=== PATIENT | female | born 1965 | race Caucasian/White ===

== ENCOUNTER 2017-01-18 14:16 | Outpatient (CLI) | payer MEDICAID | END 2017-01-18 14:17 | disposition home or self-care (01) | DX: M25.551 Pain in right hip (principal) ==

== ENCOUNTER 2017-04-26 14:49 | Emergency (ER) | payer MEDICAID ==
[2017-04-26] MEDS ORDERED: oxyCOD/ACETAMIN 5 MG/325 MG TABLET PO STA (17:12)
[2017-04-26] MEDS ORDERED: oxyCOD/ACETAMIN 5 MG/325 MG TABLET PO ONE (17:16)
== END 2017-04-26 17:55 | disposition home or self-care (01) ==
DX: S93.412A Sprain of calcaneofibular ligament of left ankle, initial encounter (principal); X50.0XXA Overexertion from strenuous movement or load, initial encounter; Y92.019 Unspecified place in single-family (private) house as the place of occurrence of the external cause; K21.9 Gastro-esophageal reflux disease without esophagitis
CPT/HCPCS: 73610; 73630; 99283; A9270

== ENCOUNTER 2017-05-10 16:28 | Outpatient (CLI) | payer MEDICAID ==
--- NOTE | 2017-05-12 13:16 | XRAY Report ---
LEFT ANKLE, THREE VIEWS: 05/10/2017 FINDINGS: Soft tissue swelling is seen about the lateral aspect of the left ankle. No fracture is s een. Minor spurring is seen along the inferior tip of the left fibula. Left ankle joint appears nor mal. No acute fracture is seen. Talar dome appears intact. IMPRESSION: MILD LATERAL SOFT TISSUE SWELLING IS NOTED WITHOUT ACUTE FRACTURE SEEN. NO SIGNIFICANT CHANGE IS NOTED COMPARED TO 04/26/2017. JOB #: [id number] EXT JOB #:[id number]
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
== END 2017-05-10 16:29 | disposition home or self-care (01) ==
LOC: DI.S 16:28
PROVIDERS: ATTEND Nurse Practitioner Family
DX: S96.812D Strain of other specified muscles and tendons at ankle and foot level, left foot, subsequent encounter (principal)

== ENCOUNTER 2017-06-18 23:07 | Emergency (ER) | payer MEDICAID ==
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
[2017-06-19] MEDS ORDERED: ONDANSETRON ODT 4 MG TABLET TL STA (00:57)
[2017-06-19] MEDS ORDERED: oxyCOD/ACETAMIN 5 MG/325 MG TABLET PO STA (00:57)
[2017-06-19] MEDS ORDERED: oxyCOD/ACETAMIN 5 MG/325 MG TABLET PO ONE (01:07)
[2017-06-19] MEDS ORDERED: ONDANSETRON ODT 4 MG TABLET ONE (01:07)
--- NOTE | 2017-06-19 01:46 | CT Preliminary Report ---
Exam: CT Head W/O IMPRESSION: Normal head CT. [facility] SITE ID: [id number]
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
[2017-06-19 02:34] VITALS: BP 122/78
== END 2017-06-19 02:34 | disposition home or self-care (01) ==
LOC: ED 23:07
DX: R51 Headache (principal); M54.2 Cervicalgia; M25.551 Pain in right hip; V89.2XXA Person injured in unspecified motor-vehicle accident, traffic, initial encounter; K21.9 Gastro-esophageal reflux disease without esophagitis; M19.90 Unspecified osteoarthritis, unspecified site
CPT/HCPCS: 70450; 99283; A9270; Q0162

== ENCOUNTER 2017-10-29 14:30 | Outpatient (CLI) | payer MEDICAID | END 2017-10-29 14:31 | disposition home or self-care (01) | LOC: LAB.R 14:30 | PROVIDERS: ATTEND Nurse Practitioner Family | DX: M13.0 Polyarthritis, unspecified (principal); M54.2 Cervicalgia | CPT/HCPCS: 80307 ==

== ENCOUNTER 2017-11-14 01:50 | Emergency (ER) | payer MEDICAID ==
[2017-11-14] MEDS ORDERED: traMADol 50 MG TABLET PO STA (02:37)
--- NOTE | 2017-11-14 02:41 | XRAY Report ---
EXAM: LEFT ANKLE RADIOGRAPHY EXAM DATE: 11/14/2017 02:24 AM. CLINICAL HISTORY: Fall ankle pain. COMPARISON: None. TECHNIQUE: 3 views. FINDINGS: Bones: No acute discrete fracture or definite suspicious bony lesion. Joints: Ankle mortise appears intact on these nonstressed images. Soft Tissues: Mild lateral soft tissue swelling. IMPRESSION: Mild lateral soft tissues without displaced fracture. [facility] Referring Provider Line: [phone] SITE ID: [id number]
--- NOTE | 2017-11-14 02:41 | XRAY Preliminary Report ---
Exam: XR ANKLE 3 VIEW LT IMPRESSION: Mild lateral soft tissues without displaced fracture. [facility] SITE ID: [id number]
[2017-11-14] MEDS ORDERED: oxyCOD/ACETAMIN 5 MG/325 MG TABLET PO STA (02:53)
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
[2017-11-14 03:15] VITALS: BP 148/86
== END 2017-11-14 03:15 | disposition home or self-care (01) ==
LOC: ED 01:50
DX: S93.402A Sprain of unspecified ligament of left ankle, initial encounter (principal); X50.1XXA Overexertion from prolonged static or awkward postures, initial encounter; Y93.E1 Activity, personal bathing and showering; Y92.012 Bathroom of single-family (private) house as the place of occurrence of the external cause; K21.9 Gastro-esophageal reflux disease without esophagitis; M19.90 Unspecified osteoarthritis, unspecified site
CPT/HCPCS: 73610; 99283; A9270

== ENCOUNTER 2017-12-15 15:31 | Outpatient (CLI) | payer MEDICAID ==
--- NOTE | 2017-12-17 10:56 | DEXA Report ---
DEXA SCAN: 12/15/2017 CLINICAL INDICATION: Postmenopausal. TECHNIQUE: Dual energy x-ray absorptiometry (DXA) was performed on a [facility] system. Regions measured are the AP spine, femoral neck, and, if needed, forearm. COMPARISON: None. In accordance with the International Society for Clinical Densitometry (ISCD) guidelines, data from previous exams may be reanalyzed using current recommendations and techniques. This is done to allow a more accurate basis for comparison with the current study. FINDINGS The data for the lumbar spine is as follows: REGION BMD (g/cm/cm) T-SCORE Z-SCORE L1 1.108 -0.2 0.4 L2 1.243 0.4 0.9 L3 1.369 1.4 1.9 L4 1.335 1.1 1.7 L1-L4 1.271 0.8 1.3 NOTE: All evaluable vertebrae are used for classification. The data for the hip is as follows: REGION BMD (g/cm/cm) T-SCORE Z-SCORE Neck 0.936 -0.7 0.1 TOTAL 1.028 0.2 0.6 NOTE: The femoral neck or total proximal femur, whichever is lowest, is used for classification. IMPRESSION THE WHO CLASSIFICATION BASED ON THE INTERNATIONAL REFERENCE STANDARD IS NORMAL. THE FRACTURE RISK IS NOT INCREASED. RECOMMENDATION: Patients with diagnosis of osteoporosis or osteopenia should have regular bone mineral density assessment. For those eligible for Medicare, routine testing is allowed once every 2 years. Testing frequency can be increased for patients who have rapidly progressing disease or for those who are receiving medical therapy to restore bone mass. COMMENT: World Health Organization (WHO) definitions for osteoporosis and osteopenia: NORMAL BMD: T-score at 1.0 or higher, fracture risk is low. OSTEOPENIA BMD: T-score between 1.0 and -2.5, fracture risk is increased. OSTEOPOROSIS BMD: T-score at 2.5 or lower, fracture risk high. National Osteoporosis Foundation recommends: 1. Obtain adequate dietary calcium (at least 1200 mg per day) and vitamin D (400 -800 international units per day). 2. Participate, as appropriate, in regular weightbearing and muscle- strengthening exercise. 3. Avoid tobacco use and reduce alcohol and caffeine intake. 4. For more detailed information see the website at www.NOF.org. TD: 12/16/2017 11:26 JERICHO
== END 2017-12-15 15:32 | disposition home or self-care (01) ==
LOC: DI 15:31
PROVIDERS: ATTEND Nurse Practitioner Family
DX: Z78.0 Asymptomatic menopausal state (principal)
CPT/HCPCS: 77080

== ENCOUNTER 2018-01-11 12:58 | Outpatient (CLI) | payer MEDICAID ==
--- NOTE | 2018-01-11 15:01 | XRAY Report ---
TWO VIEW LEFT SHOULDER: 01/11/2018 CLINICAL INDICATION: Pain. FINDINGS: Frontal and scapular Y views of the left shoulder demonstrate no evidence of fracture. The joint spaces are preserved. There is calcification in the expected location of the distal supraspinatus tendon, compatible with calcific tendonitis. No foreign body is seen in the soft tissues. IMPRESSION: LIKELY CALCIFIC TENDINITIS. TD: 01/11/2018 14:59
== END 2018-01-11 12:59 | disposition home or self-care (01) ==
LOC: DI.S 12:58
PROVIDERS: ATTEND Nurse Practitioner Family
DX: M65.812 Other synovitis and tenosynovitis, left shoulder (principal)

== ENCOUNTER 2018-03-16 14:33 | Outpatient (CLI) | payer MEDICAID ==
--- NOTE | 2018-03-16 17:33 | Mammography Report ---
DIGITAL DIAGNOSTIC BILATERAL MAMMOGRAM: 03/16/2018 CLINICAL INDICATION: Palpable abnormalities. COMPARISON: 01/27/2016, 11/11/2010. TECHNIQUE: Bilateral CC, laterally exaggerated CC, MLO, true lateral views. At the time of the examination, in addition to the palpable abnormality in the right lower inner quadrant, the patient also described palpable abnormalities in the left lower inner and lower outer quadrants, so bilateral markers were placed. FINDINGS: The breasts again demonstrate heterogeneously dense fibroglandular parenchyma bilaterally. A few punctate, typically benign calcifications are present. No suspicious masses, clustered microcalcifications, or regions of architectural distortion are identified. Unfortunately, at the time of the examination, ultrasound could not be performed. This will be scheduled at a later date. IMPRESSION: INCOMPLETE EXAMINATION. RECOMMENDATION: Bilateral breast ultrasound, to be scheduled. BI-RADS category 0, incomplete. STANDARD QUALIFYING STATEMENTS 1. This examination was reviewed with the aid of Computed-Aided Detection (CAD). 2. A negative or benign imaging report should not delay biopsy if clinically suspicious findings are present. Consider surgical consultation if warranted. More than 5% of cancers are not identified by imaging. 3. Dense breasts may obscure an underlying neoplasm. TD: 03/16/2018 16:07
== END 2018-03-16 14:34 | disposition home or self-care (01) ==
LOC: DI 14:33
PROVIDERS: ATTEND Nurse Practitioner Family
DX: N63.14 Unspecified lump in the right breast, lower inner quadrant (principal)
CPT/HCPCS: 77066

== ENCOUNTER 2018-04-06 10:35 | Outpatient (CLI) | payer MEDICAID ==
--- NOTE | 2018-04-06 11:41 | Ultrasound Report ---
Procedure Date: 04/06/2018 Accession Number: [id number] / [id number] Procedure: US - Breast Unilateral Limited CPT Code: FULL RESULT: EXAM: Breast Unilateral Limited DATE: 04/06/2018 11:30 AM CLINICAL HISTORY: BREAST LUMP OR MASS, RIGHT COMPARISON: Mammogram 03/16/2018 TECHNIQUE: Real time scanning of the palpable abnormality identified by the patient, with service liaison representative static images obtained. FINDINGS: Unremarkable parenchyma is present. No discrete solid or cystic mass is seen. No sonographically suspicious findings are identified. IMPRESSION: Negative examination. Recommendation: Routine annual screening less otherwise clinically indicated. BI-RADS Category 1 negative
--- NOTE | 2018-04-06 11:43 | Ultrasound Report ---
Procedure Date: 04/06/2018 Accession Number: [id number] / [id number] Procedure: US - Breast Unilateral Limited CPT Code: FULL RESULT: EXAM: Breast Unilateral Limited DATE: 04/06/2018 11:29 AM CLINICAL HISTORY: BREAST LUMP OR MASS, LEFT COMPARISON: Mammogram 03/16/2018 TECHNIQUE: Real time scanning of the palpable regions identified by the patient, with textiles sales representative static images obtained. FINDINGS: Unremarkable parenchymal lobules are present. No discrete solid or cystic mass is identified. No sonographically suspicious findings are seen. IMPRESSION: Negative examination. Recommendation: Routine annual screening unless otherwise clinically indicated. BI-RADS Category 1 negative
== END 2018-04-06 10:36 | disposition home or self-care (01) ==
LOC: DI 10:35
PROVIDERS: ATTEND Nurse Practitioner Family
DX: N63.20 Unspecified lump in the left breast, unspecified quadrant (principal)
CPT/HCPCS: 76642

== ENCOUNTER 2018-07-08 10:57 | Outpatient (CLI) | payer MEDICAID ==
[2018-07-08 17:33] LABS: BASOPHILS % (AUTO) 0.7 %; EOSINOPHILS # (AUTO) 0.1 10^3/uL (0.0-0.7); EOSINOPHILS % (AUTO) 4.3 %; HGB - HEMOGLOBIN 13.5 g/dL (12.0-16.0); LYMPHOCYTES # (AUTO) 0.9 10^3/uL (1.5-3.5); LYMPHOCYTES % (AUTO) 27.8 %; MEAN CORPUSCULAR HEMOGLOBIN 30.6 pg (27.0-31.0); MEAN CORPUSCULAR HGB CONC 34.3 g/dL (32.0-36.0); MEAN CORPUSCULAR VOLUME 89.3 fL (81.0-99.0); MEAN PLATELET VOLUME 8.3 fL (7.9-10.8); MONOCYTES # (AUTO) 0.3 10^3/uL (0.0-1.0); MONOCYTES % (AUTO) 8.3 %; NEUTROPHILS # (AUTO) 1.9 10^3/uL (1.5-6.6); NEUTROPHILS % (AUTO) 58.9 %; PLT - PLATELET COUNT 177 10^3/uL (130-450); RED BLOOD COUNT 4.41 10^6/uL (4.20-5.40); RED CELL DISTRIBUTION WIDTH 12.8 % (12.0-15.0); WHITE BLOOD COUNT 3.3 x10^3/uL (4.8-10.8)
[2018-07-08 18:02] LABS: ALBUMIN/GLOBULIN RATIO 1.5 (1.0-2.2); BILIRUBIN,TOTAL 0.8 mg/dL (0.2-1.0); CALCIUM 8.7 mg/dL (8.5-10.3); CREATININE 0.9 mg/dL (0.4-1.0); TOTAL PROTEIN 6.6 g/dL (6.7-8.2)
[2018-07-11 18:40] LABS: ANA SCREEN NEGATIVE (NEGATIVE)
== END 2018-07-08 10:58 | disposition home or self-care (01) ==
LOC: LAB.F 10:57
PROVIDERS: ATTEND Physician Assistant Medical
DX: R21 Rash and other nonspecific skin eruption (principal)
CPT/HCPCS: 36415; 80053; 81599; 85025; 86038; 86235

== ENCOUNTER 2018-08-04 09:42 | Outpatient (CLI) | payer MEDICAID | END 2018-08-04 09:43 | disposition home or self-care (01) | LOC: LAB.R 09:42 | PROVIDERS: ATTEND Family Medicine | DX: N39.0 Urinary tract infection, site not specified (principal) | CPT/HCPCS: 87086 ==

== ENCOUNTER 2018-09-21 08:00 | Outpatient (CLI) | payer MEDICAID ==
[2018-09-21 18:01] LABS: CREATININE,URINE 108.3 mg/dL; MICROALBUM/CREATININE RATIO,UR 5.5 ug/mg (<30.0); MICROALBUMIN,URINE 0.6 mg/dL (0-300.0)
== END 2018-09-21 08:01 | disposition home or self-care (01) ==
LOC: LAB.R 08:00
PROVIDERS: ATTEND Nurse Practitioner Family
DX: R94.4 Abnormal results of kidney function studies (principal)
CPT/HCPCS: 82043; 82570

== ENCOUNTER 2019-01-09 12:07 | Emergency (ER) | payer MEDICAID ==
[2019-01-09] MEDS ORDERED: predniSONE 20 MG TABLET PO STA (16:29)
[2019-01-09] MEDS ORDERED: FAMOTIDINE 20 MG TABLET PO STA (16:30)
--- NOTE | 2019-01-09 16:32 | ED Physician Documentation ---
PD HPI SKIN - Stated complaint Stated Complaint: ALLERGIC REACTION - Chief complaint Chief Complaint: Allergic Rx - Additional information Additional information: 53-year-old female with a history of recurrent allergic reactions to an unknown allergen. The patient's been treated in the past with steroids which is helped. The patient reports with 3 days of symptoms of face swelling and a rash on her skin. No reports of respiratory distress. No other associated symptoms. No clear triggering factors. 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 : Other HEENT: None Psych: Claustrophobia Musculoskeletal: Osteoarthritis, Chronic back pain, Other Derm: None - Past Surgical History Past Surgical History: Yes /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: Hysterectomy, Other - Present Medications Home Medications: Ambulatory Orders Medication Instructions Recorded Confirmed Escitalopram Oxalate [Lexapro] 20 mg ORAL DAILY 08/03/14 11/14/17 Trazodone HCl 50 mg ORAL DAILY PRN 08/03/14 11/14/17 diazePAM [Diazepam] 5 - 10 mg PO PRN PRN 04/26/17 11/14/17 raNITIdine [Zantac] 150 mg PO BID 04/26/17 11/14/17 Ondansetron HCl [Zofran] 4 mg PO Q6HR PRN #14 tablet 06/19/17 11/14/17 oxyCODONE/ACET 5/325 [Percocet 5 1 - 2 each PO Q6H PRN #14 tablet 06/19/17 11/14/17 mg/325 mg] predniSONE [Prednisone] 1 tab PO DAILY PRN 11/14/17 11/14/17 Famotidine [Pepcid] 20 mg PO BID PRN #60 tablet 01/09/19 predniSONE [Prednisone] 60 mg PO DAILY #12 tablet 01/09/19 - Allergies Allergies/Adverse Reactions: Allergies Allergy/AdvReac Type Severity Reaction Status Date / Time codeine Allergy Nausea Verified 11/14/17 02:03 Tetracyclines Allergy Nausea Verified 01/21/18 02:03 - Social History Does the pt smoke?: No Smoking Status: Never smoker Does the pt drink ETOH?: Yes Does the pt have substance abuse?: Yes - Immunizations Immunizations are current?: Yes - POLST Patient has POLST: No PD ED PE NORMAL - General General: Alert and oriented X 3, No acute distress - HEENT HEENT: Atraumatic, PERRL, EOMI, Ears normal, Pharynx benign, Other (The uvula is midline and nonedematous, the posterior pharynx is within normal limits, Or lips) - Neck Neck: Other (No swelling of the anterior neck) - Cardiac Cardiac: RRR - Respiratory Respiratory: No respiratory distress - Derm Derm: Normal color - Extremities Extremities: No deformity - Neuro Neuro: Alert and oriented X 3, Normal speech - Psych Psych: Normal mood PD ED PE EXPANDED - Derm Derm: Other (The patient has a urticarial rash on her face and trunk) Results - Vitals Vitals: Vital Signs - 24 hr 01/09/19 01/09/19 12:21 15:39 Temperature 36.2 C L Heart Rate 64 65 Respiratory 16 16 Rate Blood Pressure 131/94 H 142/99 H O2 Saturation 99 100 Oxygen O2 Source Room air PD MEDICAL DECISION MAKING - ED course ED course: The patient has a mild allergic reaction, the patient appears appropriate for discharge and ongoing outpatient management. The patient will follow up with primary care. I discussed warning signs and recommended returning for any worsening or concerns Departure - Departure Disposition: 01 Home, Self Care Clinical Impression: Allergic reaction Qualifiers: Encounter type: initial encounter Qualified Code(s): T78.40XA - Allergy, unspecified, initial encounter Condition: Good Instructions: ED Allergic Reaction General Other Prescriptions: Famotidine [Pepcid] 20 mg PO BID PRN #60 tablet PRN Reason: Allergy Symptoms predniSONE [Prednisone] 60 mg PO DAILY #12 tablet Comments: Please return to Emergency department for worsening symptoms or any concerns
[2019-01-09 16:38] VITALS: BP 139/97
== END 2019-01-09 16:48 | disposition home or self-care (01) ==
LOC: ED 12:07
DX: T78.40XA Allergy, unspecified, initial encounter (principal); X58.XXXA Exposure to other specified factors, initial encounter
CPT/HCPCS: 99283; A9270; J7512

== ENCOUNTER 2019-02-03 15:32 | Outpatient (CLI) | payer MEDICAID ==
[2019-02-03 17:58] LABS: BASOPHILS % (AUTO) 0.6 %; EOSINOPHILS # (AUTO) 0.2 10^3/uL (0.0-0.7); EOSINOPHILS % (AUTO) 5.5 %; HGB - HEMOGLOBIN 12.9 g/dL (12.0-16.0); LYMPHOCYTES # (AUTO) 1.4 10^3/uL (1.5-3.5); LYMPHOCYTES % (AUTO) 35.6 %; MEAN CORPUSCULAR HEMOGLOBIN 29.8 pg (27.0-31.0); MEAN CORPUSCULAR HGB CONC 33.8 g/dL (32.0-36.0); MEAN CORPUSCULAR VOLUME 88.1 fL (81.0-99.0); MEAN PLATELET VOLUME 7.2 fL (7.9-10.8); MONOCYTES # (AUTO) 0.4 10^3/uL (0.0-1.0); MONOCYTES % (AUTO) 10.8 %; NEUTROPHILS # (AUTO) 1.9 10^3/uL (1.5-6.6); NEUTROPHILS % (AUTO) 47.5 %; PLT - PLATELET COUNT 180 10^3/uL (130-450); RED BLOOD COUNT 4.33 10^6/uL (4.20-5.40); RED CELL DISTRIBUTION WIDTH 13.3 % (12.0-15.0)
[2019-02-03 18:11] LABS: ALBUMIN 3.6 g/dL (3.2-5.5); ALBUMIN/GLOBULIN RATIO 1.3 (1.0-2.2); BILIRUBIN,TOTAL 0.5 mg/dL (0.2-1.0); CREATININE 0.7 mg/dL (0.4-1.0); TOTAL PROTEIN 6.3 g/dL (6.7-8.2)
[2019-02-03 18:22] LABS: HB2 TOTAL 13.7 g/dL; HEMOGLOBIN A1C 0.55 g/dL; HEMOGLOBIN A1C % 5.8 % (4.6-6.2)
== END 2019-02-03 23:59 ==
LOC: LAB.F 15:32
PROVIDERS: ATTEND Nurse Practitioner
DX: Z13.6 Encounter for screening for cardiovascular disorders (principal); Z13.1 Encounter for screening for diabetes mellitus
CPT/HCPCS: 36415; 80053; 83036; 85025

== ENCOUNTER 2019-06-05 08:00 | Outpatient (CLI) | payer MEDICAID ==
[2019-06-05 21:03] LABS: CANDIDA GROUP DNA NEGATIVE (NEGATIVE); CANDIDA KRUSEI DNA NEGATIVE (NEGATIVE); TRICHOMONAS VAGINALIS DNA NEGATIVE (NEGATIVE)
[2019-06-05 21:36] LABS: TRICHOMONAS VAGINALIS DNA NEGATIVE (NEGATIVE)
== END 2019-06-05 23:59 | disposition home or self-care (01) ==
LOC: LAB.R 08:00
PROVIDERS: ATTEND Obstetrics & Gynecology
DX: R30.0 Dysuria (principal); Z11.3 Encounter for screening for infections with a predominantly sexual mode of transmission; R53.83 Other fatigue
CPT/HCPCS: 87086; 87181; 87491; 87591; 87661; 87801

== ENCOUNTER 2019-06-05 16:13 | Outpatient (CLI) | payer MEDICAID ==
[2019-06-05 16:48] LABS: HGB - HEMOGLOBIN 13.9 g/dL (12.0-16.0); MEAN CORPUSCULAR HEMOGLOBIN 29.3 pg (27.0-31.0); MEAN CORPUSCULAR HGB CONC 34.1 g/dL (32.0-36.0); MEAN CORPUSCULAR VOLUME 86.1 fL (81.0-99.0); MEAN PLATELET VOLUME 9.5 fL (7.9-10.8); RED BLOOD COUNT 4.74 10^6/uL (4.20-5.40); RED CELL DISTRIBUTION WIDTH 11.7 % (12.0-15.0); WHITE BLOOD COUNT 4.9 x10^3/uL (4.8-10.8)
[2019-06-05 17:07] LABS: HB2 TOTAL 15.1 g/dL; HEMOGLOBIN A1C 0.54 g/dL; HEMOGLOBIN A1C % 5.4 % (4.6-6.2)
[2019-06-05 17:22] LABS: ALBUMIN 4.3 g/dL (3.2-5.5); ALBUMIN/GLOBULIN RATIO 1.4 (1.0-2.2); ALKALINE PHOSPHATASE 61 IU/L (42-121); ALT ALANINE AMINOTRANSFERASE 23 IU/L (10-60); AST ASPARTATE AMINOTRANSFERASE 20 IU/L (10-42); BILIRUBIN,TOTAL 0.4 mg/dL (0.2-1.0); BUN - BLOOD UREA NITROGEN 14 mg/dL (6-20); CALCIUM 9.4 mg/dL (8.5-10.3); CARBON DIOXIDE - CO2 24 mmol/L (21-32); CHLORIDE 105 mmol/L (101-111); CHOLESTEROL 244 mg/dL; CREATININE 0.9 mg/dL (0.4-1.0); GFR - MDRD 65 (>89); GLUCOSE 157 mg/dL (70-100); HDL CHOLESTEROL 82 mg/dL; LDL CHOLESTEROL,CALCULATED 140 mg/dL; LDL/HDL RATIO 1.7 (<4.4); SODIUM 142 mmol/L (135-145); TOTAL PROTEIN 7.3 g/dL (6.7-8.2); VLDL CHOLESTEROL 22 mg/dL
[2019-06-05 17:34] LABS: THYROID STIMULATING HORMONE 1.16 uIU/mL (0.34-5.60)
[2019-06-05 17:37] LABS: FREE T4 (FREE THYROXINE) 0.73 ng/dL (0.58-1.64)
[2019-06-06 12:11] LABS: HEPATITIS A IGM NON-REACTIVE (NON-REACTIVE); HEPATITIS B SURFACE ANTIGEN NON-REACTIVE (NON-REACTIVE); HEPATITIS C ANTIBODY NON-REACTIVE (NON-REACTIVE)
[2019-06-06 13:36] LABS: HIV AG/AB 4TH GEN NON-REACTIVE (NON-REACTIVE)
[2019-06-07 08:46] LABS: HSV 2 IGG TYPE SPECIFIC AB <0.90 index
== END 2019-06-05 16:14 | disposition home or self-care (01) ==
LOC: LAB 16:13
PROVIDERS: ATTEND Obstetrics & Gynecology
DX: R53.83 Other fatigue (principal); Z13.220 Encounter for screening for lipoid disorders; Z13.1 Encounter for screening for diabetes mellitus; Z11.3 Encounter for screening for infections with a predominantly sexual mode of transmission; R30.0 Dysuria
CPT/HCPCS: 36415; 80053; 80061; 80074; 81599; 83036; 83721; 84439; 84443; 85027; 86592; 86695; 86696; 87086; 87181; 87389; 87491; 87591; 87661; 87801

== ENCOUNTER 2019-06-12 15:05 | Outpatient (CLI) | payer MEDICAID ==
--- NOTE | 2019-06-13 08:48 | Mammography Report ---
Reason: SCREENING MAMMO Procedure Date: 06/12/2019 Accession Number: [id number] / [id number] Procedure: ANGI - Screening Mammo w/Donta CPT Code: FULL RESULT: EXAM: Screening Mammo w/Donta DATE: 06/12/2019 3:35 PM CLINICAL HISTORY: Routine screening. No reported personal history of breast cancer. Family history breast cancer in mother at age 57. TECHNIQUE: (B) - Bilateral CC and MLO views were obtained. COMPARISON: 03/16/2018 through 11/11/2010. PARENCHYMAL PATTERN: (D) - The breasts demonstrate heterogeneously dense fibroglandular parenchyma bilaterally. FINDINGS: Bilateral breasts: There are no suspicious masses, calcifications, or areas of distortion. IMPRESSION: Negative examination. BI-RADS category 1. RECOMMENDATION: (ANNUAL) - Recommend routine annual screening mammography. BI-RADS CATEGORY: (1) - Negative. STANDARD QUALIFYING STATEMENTS: 1. This examination was not reviewed with the aid of Computer-Aided Detection (CAD). 2. A negative or benign imaging report should not preclude biopsy if clinically suspicious findings are present. 3. Dense breasts may obscure an underlying neoplasm. 4. This examination was reviewed with the aid of 3D breast imaging (tomosynthesis).
== END 2019-06-12 15:06 | disposition home or self-care (01) ==
LOC: DI 15:05
PROVIDERS: ATTEND Obstetrics & Gynecology
DX: Z12.31 Encounter for screening mammogram for malignant neoplasm of breast (principal); Z80.3 Family history of malignant neoplasm of breast
CPT/HCPCS: 77063; 77067

== ENCOUNTER 2019-07-26 17:45 | Emergency (ER) | payer MEDICAID ==
[2019-07-26 17:57] VITALS: BP 131/80
[2019-07-26] MEDS ORDERED: CETIRIZINE 10 MG TABLET PO STA (20:58)
[2019-07-26] MEDS ORDERED: CHERRY SYRUP 10 ML UDC PO ONE (20:58)
[2019-07-26] MEDS ORDERED: DEXAMETHASONE 10 MG/ML VIAL PO STA (20:58)
[2019-07-26] MEDS ORDERED: diphenhydrAMINE 25 MG CAPSULE PO STA (20:58)
[2019-07-26] MEDS ORDERED: HYDROcod/ACETAM 5/325 MG TABLET PO STA (20:59)
[2019-07-26] MEDS ORDERED: oxyCODONE 5 MG TABLET PO STA (21:29)
--- NOTE | 2019-07-26 21:39 | ED Physician Documentation ---
PD HPI HEENT - Stated complaint Stated Complaint: BILAT EYE IRRITATION - Chief complaint Chief Complaint: General - History obtained from History obtained from: Patient - History of Present Illness Timing - onset: Yesterday Timing - duration: Days (1-2) Timing - details: Gradual onset Location: Other (has some swelling around eyes/eyelids. Had been stressed and crying with some rubbing around eyelids. Has redness and some thickening of skin c/w prior reactions of allergic or immune reaction. Has rheumatoid and says has allergy-like reactions under stress, with facial edema and itching rash, with some wheezing as well in the past. Not that bad right now.). No: Throat, Mouth Associated symptoms: Facial swelling. No: Fever, Congestion, Rhinorrhea, Headache Similar symptoms before: Diagnosis (allergies or autoimmune reaction. Has history of immune process.) Recently seen: Not recently seen Review of Systems Constitutional: reports: Myalgias, Fatigue. denies: Fever, Chills Nose: denies: Rhinorrhea / runny nose, Congestion Throat: denies: Sore throat Respiratory: reports: Wheezing. denies: Cough GI: denies: Nausea, Vomiting Musculoskeletal: reports: Joint pain (arms and knees mostly) Neurologic: reports: Generalized weakness. denies: Focal weakness, Numbness, Near syncope, Altered mental status, Headache Psychiatric: reports: Anxiety. 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 : Other HEENT: None Psych: Claustrophobia Musculoskeletal: Osteoarthritis, Chronic back pain, Other Derm: None - Past Surgical History Past Surgical History: Yes /SAMPLE MAKER ORIGINAL: Hysterectomy, Other - Present Medications Home Medications: Ambulatory Orders Medication Instructions Recorded Confirmed Escitalopram Oxalate [Lexapro] 20 mg ORAL DAILY 08/03/14 11/14/17 Trazodone HCl 50 mg ORAL DAILY PRN 08/03/14 11/14/17 diazePAM [Diazepam] 5 - 10 mg PO PRN PRN 04/26/17 11/14/17 raNITIdine [Zantac] 150 mg PO BID 04/26/17 11/14/17 Ondansetron HCl [Zofran] 4 mg PO Q6HR PRN #14 tablet 08/26/17 01/21/18 oxyCODONE/ACET 5/325 [Percocet 5 1 - 2 each PO Q6H PRN #14 tablet 06/19/17 11/14/17 mg/325 mg] predniSONE [Prednisone] 1 tab PO DAILY PRN 11/14/17 11/14/17 Famotidine [Pepcid] 20 mg PO BID PRN #60 tablet 01/09/19 predniSONE [Prednisone] 60 mg PO DAILY #12 tablet 01/09/19 Cetirizine [ZyrTEC] 10 mg PO DAILY #15 tablet 07/26/19 Ketotifen Fumarate 2 drops EACHEYE QID PRN #10 ml 07/26/19 Oxycodone HCl/Acetaminophen 1 each PO Q6H PRN #14 tablet 07/26/19 [Percocet 5-325 mg Tablet] dexAMETHasone [Decadron] 4 mg PO DAILY #7 tablet 07/26/19 - Allergies Allergies/Adverse Reactions: Allergies Allergy/AdvReac Type Severity Reaction Status Date / Time abatacept [From Orencia] Allergy Unknown Verified 07/26/19 17:54 codeine Allergy Nausea Verified 07/26/19 17:54 Tetracyclines Allergy Nausea Verified 07/26/19 17:54 - Social History Does the pt smoke?: No Smoking Status: Never smoker Does the pt drink ETOH?: Yes Does the pt have substance abuse?: Yes - Immunizations Immunizations are current?: Yes - POLST Patient has POLST: No PD ED PE NORMAL - Vitals Vital signs reviewed: Yes - General General: Alert and oriented X 3, No acute distress, Well developed/nourished - HEENT HEENT: Ears normal, Moist mucous membranes, Pharynx benign, Other (periorbital swelling with some redness. Not looking infectious. Eyes/conjunctiva appear normal. No oral edema. Normal voice and breathing. ) - Neck Neck: Supple, no meningeal sign, No adenopathy - Cardiac Cardiac: RRR, No murmur - Respiratory Respiratory: Clear bilaterally - Derm Derm: Normal color, Warm and dry, No rash (except around eyes. ) Results - Vitals Vitals: Vital Signs - 24 hr 07/26/19 07/26/19 21:46 21:49 Respiratory 16 16 Rate Oxygen O2 Source Room air PD MEDICAL DECISION MAKING - ED course Complexity details: considered differential (swelling around eyes. States often progresses to hives and wheezing. Has been treated with steroids and inhaler in the past. Has some joint pains from RA as well. ), d/w patient Departure - Departure Disposition: 01 Home, Self Care Clinical Impression: Periorbital swelling Allergic reaction Qualifiers: Encounter type: initial encounter Qualified Code(s): T78.40XA - Allergy, unspecified, initial encounter Condition: Stable Record reviewed to determine appropriate education?: Yes Follow-Up: Cassie Boone PA-C [Primary Care Provider] - Prescriptions: Cetirizine [ZyrTEC] 10 mg PO DAILY #15 tablet dexAMETHasone [Decadron] 4 mg PO DAILY #7 tablet Ketotifen Fumarate 2 drops EACHEYE QID PRN #10 ml PRN Reason: Allergy Symptoms Oxycodone HCl/Acetaminophen [Percocet 5-325 mg Tablet] 1 each PO Q6H PRN #14 tablet PRN Reason: pain Comments: Use the ketotifen allergy eyedrops 4 times a day as needed for eye irritation. Cetirizine antihistamine daily for the next week or 2. Decadron steroid daily for the next week. Add Benadryl if needed for itch for swelling in the short- term. Pain medicine if needed. Recheck if not improved over the next few days. Forms: Activity restrictions Discharge Date/Time: 07/26/19 21:54
== END 2019-07-26 21:54 | disposition home or self-care (01) ==
LOC: ED 17:45
DX: T78.40XA Allergy, unspecified, initial encounter (principal); R22.0 Localized swelling, mass and lump, head; X58.XXXA Exposure to other specified factors, initial encounter; M06.9 Rheumatoid arthritis, unspecified
CPT/HCPCS: 99283; 99284; A9270

== ENCOUNTER 2019-07-31 08:00 | Outpatient (CLI) | payer MEDICAID | END 2019-07-31 23:59 | disposition home or self-care (01) | LOC: LAB.R 08:00 | PROVIDERS: ATTEND Obstetrics & Gynecology | DX: N39.0 Urinary tract infection, site not specified (principal) | CPT/HCPCS: 87086; 87181 ==

== ENCOUNTER 2019-08-14 13:36 | Outpatient (CLI) | payer MEDICAID ==
--- NOTE | 2019-08-14 15:47 | MRI Report ---
Reason: CERVICAL DDD, RT HIP PAIN Procedure Date: 08/14/2019 Accession Number: [id number] / [id number] Procedure: MRI - Cervical Spine W/O CPT Code: FULL RESULT: EXAM: MRI CERVICAL SPINE WITHOUT CONTRAST EXAM DATE: 08/14/2019 03:07 PM. CLINICAL HISTORY: 54-year-old with chronic neck pain and right hip pain. Evaluate for cervical pathology. COMPARISONS: Cervical spine radiograph 09/30/2017. TECHNIQUE: Multiplanar, multisequence T1-weighted and fluid-sensitive sequences of the cervical spine without contrast. Other: None. FINDINGS: Neurologic Structures: The visualized posterior fossa structures are unremarkable. No signal abnormality in the visualized spinal cord. Alignment: Straightening of the cervical lordosis. There is 2 to 3 mm of anterior subluxation of C3 on C4 as well as 2 to 3 mm of posterior subluxation of C5 on C6. Bone Marrow: No acute fracture or traumatic subluxation seen. There is Modic type II changes seen at C6-C7 that may be degenerative in nature. There is no definite abnormal marrow replacing lesion seen. Incidentally seen is a fusion between the left occipital condyle and lateral mass of C1. Interspace Levels/Facets: Mild endplate degenerative change with mild to moderate loss of disk height and disk desiccation seen throughout the cervical spine. Scattered Schmorl's nodes seen. C1-C2: Arthritic changes between the dens and anterior arch of C1. C2-C3: Small central disk osteophyte complex. Bilateral arthritic facet disease. No definite spinal canal stenosis. No definite neural foraminal narrowing. C3-C4: Small central disk osteophyte complex. Bilateral arthritic facet disease. No definite spinal canal stenosis. No definite neural foraminal narrowing. C4-C5: Small broad-based disk osteophyte complex. Bilateral uncovertebral osteophyte and arthritic facet disease, greater on the left. Mild spinal canal stenosis. Mild right and moderate left neural foraminal narrowing. C5-C6: Small broad-based disk osteophyte complex. Bilateral uncovertebral osteophyte and arthritic facet disease. Mild spinal canal stenosis. Mild bilateral neural foraminal narrowing. C6-C7: Bilateral arthritic facet disease and right uncovertebral osteophyte formation. No spinal canal stenosis. Mild right neural foraminal narrowing. C7-T1: Bilateral arthritic facet disease. No spinal canal stenosis. No definite neural foraminal narrowing. Musculature: Normal. No edema or fatty atrophy. Other: The paravertebral and prevertebral soft tissues are normal. IMPRESSION: 1. Straightening of the normal cervical lordosis. 2. Multilevel degenerative changes. C4-C5: Mild spinal canal stenosis. Mild right and moderate left neural foraminal narrowing. C5-C6: Mild spinal canal stenosis. Mild bilateral neural foraminal narrowing. C6-C7: No spinal canal stenosis. Mild right neural foraminal narrowing. RADIA
--- NOTE | 2019-08-14 17:28 | MRI Report ---
Reason: CERVICAL DDD, RT HIP PAIN Procedure Date: 08/14/2019 Accession Number: [id number] / [id number] Procedure: MRI - Hip RT W/O CPT Code: FULL RESULT: EXAM: RIGHT HIP MRI WITHOUT CONTRAST EXAM DATE: 08/14/2019 03:08 PM. CLINICAL HISTORY: Cervical DDD, right hip pain. COMPARISON: None. TECHNIQUE: Multiplanar, multisequence T1-weighted and fluid-sensitive, small vsgqt-fu-lswe sequences of the hip and large umnnt-jo-ecup sequences of the pelvis without contrast. Other: None. FINDINGS: Bones: Tiny adjacent cystic changes seen in the anterior acetabular region. Series 801 image 13. There is also a second area of subchondral cystic change seen at the lateral margin of the bony acetabulum. Series 801 image 16. Right Hip: No acetabular retroversion. Femoral head/neck offset is within normal limits. No effusion or loose bodies. Global thinning of the articular cartilage at the acetabulum. No focal cartilaginous flaps are identified. Some increased T2 signal seen in the anterior labrum on the sagittals, no convincing evidence for tear. This is suspicious, however. This also is corroborated on the coronal series 901 image 13. The ligamentum teres is intact. Other Joints: The visualized lumbar spine, sacroiliac joints, symphysis pubis, and contralateral hip are unremarkable. Musculature: No edema or fatty atrophy. The gluteus medius and minimus tendons are normal. The visualized hamstring tendons are normal. The ischiofemoral space is normal. Pelvic Cavity: The visualized viscera are unremarkable. No lymphadenopathy. No free fluid in the pelvis. Other: The visualized sciatic nerves are unremarkable. No bursitis. The subcutaneous tissues are unremarkable. IMPRESSION: 1. 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 No loose bodies. 2. Some mild increased T2 signal in the anterior and superior lateral labrum, no convincing MRI evidence for tear. This is suspicious, however. If additional diagnostic confidence is needed, arthrography would be helpful. RADIA
== END 2019-08-14 13:37 | disposition home or self-care (01) ==
LOC: DI 13:36
PROVIDERS: ATTEND Internal Medicine Rheumatology
DX: M47.812 Spondylosis without myelopathy or radiculopathy, cervical region (principal); M48.02 Spinal stenosis, cervical region; M16.11 Unilateral primary osteoarthritis, right hip; M94.251 Chondromalacia, right hip
CPT/HCPCS: 72141

== ENCOUNTER 2019-08-22 11:26 | Emergency (ER) | payer MEDICAID ==
[2019-08-22] MEDS ORDERED: predniSONE 20 MG TABLET PO STA (13:34)
[2019-08-22] MEDS ORDERED: oxyCODONE 5 MG TABLET PO STA (13:35)
--- NOTE | 2019-08-22 13:38 | ED Physician Documentation ---
History of Present Illness - Stated complaint Stated Complaint: FACIAL/THROAT SWELLING - Chief complaint Chief Complaint: General - History obtained from History obtained from: Patient - History of Present Illness Timing: How many days ago (3) - Additonal information Additional information: 54-year-old female with a history of allergy has developed swelling to her eyelids again today similar to what she had earlier in the month. 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 She states that on Tuesdays they do major cleanup and she is exposed all day long and feels that she is exposed to black mold. Review of Systems Constitutional: denies: Fever Eyes: reports: Irritation. denies: Decreased vision Ears: denies: Ear pain Nose: denies: Congestion Throat: denies: Sore throat Respiratory: reports: Wheezing. 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: Hysterectomy, Other - Present Medications Home Medications: Ambulatory Orders Medication Instructions Recorded Confirmed Escitalopram Oxalate [Lexapro] 20 mg ORAL DAILY 08/03/14 11/14/17 Trazodone HCl 50 mg ORAL DAILY PRN 08/03/14 11/14/17 diazePAM [Diazepam] 5 - 10 mg PO PRN PRN 04/26/17 11/14/17 raNITIdine [Zantac] 150 mg PO BID 04/26/17 11/14/17 Ondansetron HCl [Zofran] 4 mg PO Q6HR PRN #14 tablet 06/19/17 11/14/17 oxyCODONE/ACET 5/325 [Percocet 5 1 - 2 each PO Q6H PRN #14 tablet 06/19/17 11/14/17 mg/325 mg] predniSONE [Prednisone] 1 tab PO DAILY PRN 11/14/17 11/14/17 Famotidine [Pepcid] 20 mg PO BID PRN #60 tablet 01/09/19 predniSONE [Prednisone] 60 mg PO DAILY #12 tablet 01/09/19 Cetirizine [ZyrTEC] 10 mg PO DAILY #15 tablet 07/26/19 Ketotifen Fumarate 2 drops EACHEYE QID PRN #10 ml 07/26/19 Oxycodone HCl/Acetaminophen 1 each PO Q6H PRN #14 tablet 07/26/19 [Percocet 5-325 mg Tablet] dexAMETHasone [Decadron] 4 mg PO DAILY #7 tablet 07/26/19 Oxycodone HCl/Acetaminophen 1 - 2 each PO Q6H PRN #10 tablet 08/22/19 [Percocet 5-325 mg Tablet] predniSONE [Deltasone] 10 mg PO ONCE #26 tablet 08/22/19 - Allergies Allergies/Adverse Reactions: Allergies Allergy/AdvReac Type Severity Reaction Status Date / Time abatacept [From Orencia] Allergy Unknown Verified 07/26/19 17:54 codeine Allergy Nausea Verified 07/26/19 17:54 Tetracyclines Allergy Nausea Verified 07/26/19 17:54 - Social History Does the pt smoke?: No Smoking Status: Never smoker Does the pt drink ETOH?: Yes Does the pt have substance abuse?: Yes - Immunizations Immunizations are current?: Yes - POLST Patient has POLST: No PD ED PE NORMAL - Vitals Vital signs reviewed: Yes (hypertensive) - General General: Alert and oriented X 3, Well developed/nourished - HEENT HEENT: Atraumatic, PERRL, EOMI, Ears normal, Moist mucous membranes, Pharynx benign, Dentition benign, Other (both eyes are erythematous and puffy to the lids consistent with an allergic swelling ) - Neck Neck: Supple, no meningeal sign, No bony TTP - Cardiac Cardiac: RRR, No murmur - Respiratory Respiratory: No respiratory distress, Clear bilaterally - Derm Derm: Normal color, Warm and dry - Extremities Extremities: No deformity, No edema - Neuro Neuro: Alert and oriented X 3, 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, No motor deficit, No sensory deficit, Normal speech Eye Opening: Spontaneous Motor: Obeys Commands Verbal: Oriented GCS Score: 15 - Psych Psych: Normal mood, Normal affect Results - Vitals Vitals: Vital Signs - 24 hr 08/22/19 08/22/19 11:37 13:47 Temperature 36.9 C 36.8 C Heart Rate 59 L 60 Respiratory 18 16 Rate Blood Pressure 150/106 H 148/96 H O2 Saturation 99 100 Oxygen O2 Source Room air PD MEDICAL DECISION MAKING - ED course Complexity details: reviewed results, re-evaluated patient, considered differential, d/w patient ED course: 54-year-old female with a recurrence of swelling to her eyes working environment with a lot of construction dust and mold. She is administered prednisone 60 mg orally here in the emergency department. Departure - Departure Disposition: Home, Self Care Clinical Impression: Periorbital swelling Condition: Stable Instructions: Allergens Mold Follow-Up: MICH KARIMI MD [Primary Care Provider] - Prescriptions: Oxycodone HCl/Acetaminophen [Percocet 5-325 mg Tablet] 1 - 2 each PO Q6H PRN #10 tablet PRN Reason: pain predniSONE [Deltasone] 10 mg PO ONCE #26 tablet Forms: Activity restrictions Discharge Date/Time: 08/22/19 13:47
[2019-08-22 13:49] VITALS: BP 148/96
== END 2019-08-22 13:47 | disposition home or self-care (01) ==
LOC: ED 11:26
DX: H02.846 Edema of left eye, unspecified eyelid (principal); H02.843 Edema of right eye, unspecified eyelid; Z77.120 Contact with and (suspected) exposure to mold (toxic)
CPT/HCPCS: 99282; 99283; A9270; J7512

== ENCOUNTER 2019-09-26 08:00 | Outpatient (CLI) | payer MEDICAID ==
[2019-09-26 14:29] LABS: BILIRUBIN,URINE NEGATIVE (NEGATIVE); GLUCOSE, URINE (UA) NEGATIVE (NEGATIVE); KETONES,URINE (UA) NEGATIVE (NEGATIVE); LEUKOCYTE ESTERASE, URINE NEGATIVE (NEGATIVE); NITRITE,URINE POSITIVE (NEGATIVE); OCCULT BLOOD,URINE TRACE-INTA (NEGATIVE); PROTEIN,URINE NEGATIVE (NEGATIVE); UROBILINOGEN,URINE 0.2 (NORMAL) E.U./dL (NORMAL)
[2019-09-26 14:38] LABS: CLARITY,URINE CLEAR (CLEAR); RBC,URINE 0-5 /HPF (0-5)
[2019-09-26 14:39] LABS: BACTERIA,URINE None Seen /HPF (None Seen); CRYSTALS,URINE 6-10 Uric Acid /LPF; SQUAMOUS EPITHELIAL CELL,UR MOD Squamous (<= Few)
== END 2019-09-26 23:59 | disposition home or self-care (01) ==
LOC: LAB.R 08:00
PROVIDERS: ATTEND Obstetrics & Gynecology
DX: N39.0 Urinary tract infection, site not specified (principal)
CPT/HCPCS: 81001; 87086

== ENCOUNTER 2019-11-22 15:03 | Outpatient (CLI) | payer MEDICAID ==
--- NOTE | 2019-11-23 11:44 | XRAY Report ---
Reason: HIP PAIN Procedure Date: 11/22/2019 Accession Number: [id number] / [id number] Procedure: XRN - Hips 2V BILAT CPT Code: Final Report FULL RESULT: EXAM: BILATERAL HIP RADIOGRAPHY EXAM DATE: 11/22/2019 03:20 PM. CLINICAL HISTORY: Bilateral hip pain COMPARISON: HIP 1 VIEW RT 01/18/2017 2:36 PM HIP RT W/O 08/14/2019 2:39 PM. TECHNIQUE: 2 views each. FINDINGS: Bones: No fracture or bone lesion. Joints: Normal alignment at the hips, sacroiliac joints, and pubic symphysis. Mild joint space loss and subchondral sclerosis at the right hip. The left hip joint space is maintained with no osteophytosis, subchondral sclerosis, or other significant arthritic change. Soft Tissues: Left intrapelvic phleboliths. IMPRESSION: 1. Mild right hip osteoarthritis. 2. No significant arthritic change at the left hip. RADIA
== END 2019-11-22 15:04 | disposition home or self-care (01) ==
LOC: DI.N 15:03
PROVIDERS: ATTEND Family Medicine
DX: M16.11 Unilateral primary osteoarthritis, right hip (principal); M25.552 Pain in left hip
CPT/HCPCS: 73521

== ENCOUNTER 2020-01-06 12:16 | Emergency (ER) | payer MEDICAID ==
[2020-01-06] MEDS ORDERED: predniSONE 20 MG TABLET PO STA (12:41)
[2020-01-06] MEDS ORDERED: CETIRIZINE 10 MG TABLET PO STA (12:41)
[2020-01-06] MEDS ORDERED: diphenhydrAMINE 25 MG CAPSULE PO STA (12:41)
[2020-01-06] MEDS ORDERED: oxyCODONE 5 MG TABLET PO STA (12:48)
--- NOTE | 2020-01-06 13:04 | ED Physician Documentation ---
History of Present Illness - Stated complaint Stated Complaint: BILAT EYE SWELLING - Chief complaint Chief Complaint: Heent - History obtained from History obtained from: Patient - History of Present Illness Timing: Today Pain level max: 8 Pain level now: 8 - Additonal information Additional information: Patient states redness, swelling and pain to the bilateral eyes. She states that this happens every few months. Has seen an delivery sales worker, but no cause found. She did not take anything prior to arrival. Nothing makes it better or worse. Patient denies using any make-up. Denies any new soaps, detergents. She rarely uses mascara. 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: Hysterectomy, Other - Present Medications Home Medications: Ambulatory Orders Medication Instructions Recorded Confirmed Escitalopram Oxalate [Lexapro] 20 mg ORAL DAILY 08/03/14 11/14/17 Trazodone HCl 50 mg ORAL DAILY PRN 08/03/14 11/14/17 diazePAM [Diazepam] 5 - 10 mg PO PRN PRN 04/26/17 11/14/17 raNITIdine [Zantac] 150 mg PO BID 04/26/17 11/14/17 Ondansetron HCl [Zofran] 4 mg PO Q6HR PRN #14 tablet 06/19/17 11/14/17 oxyCODONE/ACET 5/325 [Percocet 5 1 - 2 each PO Q6H PRN #14 tablet 06/19/17 11/14/17 mg/325 mg] predniSONE [Prednisone] 1 tab PO DAILY PRN 11/14/17 11/14/17 Famotidine [Pepcid] 20 mg PO BID PRN #60 tablet 01/09/19 predniSONE [Prednisone] 60 mg PO DAILY #12 tablet 01/09/19 Cetirizine [ZyrTEC] 10 mg PO DAILY #15 tablet 07/26/19 Ketotifen Fumarate 2 drops EACHEYE QID PRN #10 ml 07/26/19 Oxycodone HCl/Acetaminophen 1 each PO Q6H PRN #14 tablet 07/26/19 [Percocet 5-325 mg Tablet] dexAMETHasone [Decadron] 4 mg PO DAILY #7 tablet 07/26/19 Oxycodone HCl/Acetaminophen 1 - 2 each PO Q6H PRN #10 tablet 08/22/19 [Percocet 5-325 mg Tablet] predniSONE [Deltasone] 10 mg PO ONCE #26 tablet 08/22/19 Oxycodone HCl 5 - 10 mg PO Q6H PRN #10 tablet 01/06/20 predniSONE [Deltasone] 10 mg PO [id number] #42 tab 01/06/20 - Allergies Allergies/Adverse Reactions: Allergies Allergy/AdvReac Type Severity Reaction Status Date / Time abatacept [From Orencia] Allergy Unknown Verified 01/06/20 12:20 codeine Allergy Nausea Verified 01/06/20 12:20 Tetracyclines Allergy Nausea Verified 01/06/20 12:20 - Social History Does the pt smoke?: No Smoking Status: Never smoker Does the pt drink ETOH?: Yes Does the pt have substance abuse?: Yes Substance Use and Type: Marijuana - Immunizations Immunizations are current?: No - POLST Patient has POLST: No PD ED PE NORMAL - Vitals Vital signs reviewed: Yes - General General: Alert and oriented X 3, No acute distress, Well developed/nourished - HEENT HEENT: Moist mucous membranes, Pharynx benign, Other (Bilateral upper and lower eyelids are erythematous, swollen. The erythema extends to the periorbital area as well. No pain with extraocular movement.) - Neck Neck: Supple, no meningeal sign - Derm Derm: Warm and dry - Neuro Neuro: Alert and oriented X 3 Results - Vitals Vitals: Vital Signs - 24 hr 01/06/20 01/06/20 12:20 12:30 Temperature 37 C 36.7 C Heart Rate 61 68 Respiratory 17 18 Rate Blood Pressure 121/92 H 151/84 H O2 Saturation 98 100 Oxygen O2 Source Room air PD MEDICAL DECISION MAKING - ED course Complexity details: reviewed old records, considered differential, d/w patient ED course: Patient was similar symptoms to her prior episodes. She has improved in the past with antihistamines and steroids. We will trial her on this again. She does request pain medication for home. No evidence of infection. Does not appear consistent with orbital or periorbital cellulitis. Unclear etiology. Patient counseled regarding signs and symptoms for which I believe and urgent re-evaluation would be necessary. Patient with good understanding of and agreement to plan and is comfortable going home at this time This document was made in part using voice recognition software. While efforts are made to proofread this document, sound alike and grammatical errors may occur. Departure - Departure Disposition: 01 Home, Self Care Clinical Impression: Periorbital swelling Blepharitis of both eyes Qualifiers: Blepharitis type: unspecified type Eyelid: both upper and lower Qualified Code(s): H01.00A - Unspecified blepharitis right eye, upper and lower eyelids; H01.00B - Unspecified blepharitis left eye, upper and lower eyelids Condition: Good Instructions: ED Allergic Reaction Local Other Follow-Up: MICH KARIMI MD [Primary Care Provider] - As Needed Prescriptions: Oxycodone HCl 5 - 10 mg PO Q6H PRN #10 tablet PRN Reason: pain predniSONE [Deltasone] 10 mg PO [id number] #42 tab Comments: Take all steroids until gone. Return if you worsen. You can supplement Benad ryl or Zyrtec or Claritin as well to help with the itching and swelling. Do not drink alcohol or drive while on narcotic pain medicine. Note that many narcotic pain relievers also contain tylenol/acetaminophen. Please ensure that your total dose of acetaminophen from all sources does not exceed 3 grams (3000mg) per day. You may constipated on this medication, take a stool softener such as "Colace" twice a day while you are on it. Also recommend a caju-dnx-ytbthga laxative such as senna or MiraLAX any day that you do not have a bowel movement. If you received narcotic pain medication in the emergency department, do not drive or operate machinery for the next 24 hours.
[2020-01-06 13:08] VITALS: BP 153/83
== END 2020-01-06 13:16 | disposition home or self-care (01) ==
LOC: ED 12:16
DX: H05.223 Edema of bilateral orbit (principal); H01.00B Unspecified blepharitis left eye, upper and lower eyelids; H01.00A Unspecified blepharitis right eye, upper and lower eyelids
CPT/HCPCS: 99282; 99284; A9270; J7512

== ENCOUNTER 2020-03-19 16:10 | Outpatient (CLI) | payer MEDICAID | END 2020-03-19 23:59 | disposition home or self-care (01) | LOC: COV 16:10 | PROVIDERS: ATTEND Family Medicine | DX: R05 Cough (principal); R50.9 Fever, unspecified; R53.83 Other fatigue; Z20.828 Contact with and (suspected) exposure to other viral communicable diseases | CPT/HCPCS: 81599 ==

== ENCOUNTER 2020-06-19 11:26 | Outpatient (CLI) | payer MEDICAID ==
--- NOTE | 2020-06-20 07:29 | Mammography Report ---
UNILATERAL RIGHT DIGITAL DIAGNOSTIC MAMMOGRAM 3D/2D: 06/19/2020 CLINICAL: Patient returns today to evaluate a focal asymmetry in the right breast. Comparison is made to exams dated: 06/12/2019 mammogram, 05/27/2020 mammogram, 04/06/2018 ultrasound, ultrasound, 03/16/2018 mammogram, and 01/27/2016 mammogram - [facility]. The tissue of right breast is heterogeneously dense. This may lower the sensitivity of mammography. The focal asymmetry in the right breast at 6 o'clock middle depth is no longer seen which is consiste nt with summation artifact. No other significant masses or calcifications are seen in the breast. IMPRESSION: INCOMPLETE: NEEDS ADDITIONAL IMAGING EVALUATION The previously described asymmetry disperses with additional views and is consistent with summation a rtifact; however, an ultrasound is recommended for further evaluation and is scheduled to immediately follow this study. This exam was interpreted at Station ID: [id number]. NOTE: For mammograms, a report in lay terms will be sent to the patient. Approximately 15% of breast malignancies will not be visualized mammographically. In the management of a palpable breast mass, a negative mammogram must not discourage biopsy of a clinically suspicious lesion. Electronically Signed By: Nghia Felipe M.D. aty/:06/19/2020 12:37:49 ACR BI-RADS Category 0: Incomplete 3340F PARENCHYMAL PATTERN: (D) - The breast(s) demonstrate(s) heterogeneously dense fibroglandular [facility]. BI-RADS CATEGORY: (0) - 0 Ultrasound [id number] Immediate follow-up LATERALITY: (R)
--- NOTE | 2020-06-20 07:30 | Ultrasound Report ---
LIMITED ULTRASOUND OF RIGHT BREAST: 06/19/2020 CLINICAL: Patient returns today to evaluate a focal asymmetry in the right breast. Comparison is made to exams dated: 06/19/2020 mammogram, 05/27/2020 mammogram, 06/12/2019 mammogram, 03/25 ultrasound, 04/06/2018 ultrasound, and 03/16/2018 mammogram - [facility]. Real-time ultrasound of the right breast 4-8 o'clock region was performed. Iyer scale images of the real-time examination were reviewed. No significant abnormalities were seen sonographically in the right breast. IMPRESSION: NEGATIVE There is no sonographic evidence of malignancy. There is no abnormality seen in the right breast to correspond with the mammography finding which lik alex represents normal dense fibroglandular tissue. A 1 year screening mammogram is recommended. Findings and recommendations were conveyed to the patient during today's visit. This exam was interpreted at Station ID: [id number]. Electronically Signed By: Nghia Felipe M.D. aty/:06/19/2020 15:59:26 Ultrasound BI-RADS: 1 Negative BI-RADS CATEGORY: (1) - 1 RECOMMENDATION: (ANNUAL) - Recommend routine annual screening mammography. [id number] 1 year screening LATERALITY: (B)
== END 2020-06-19 11:27 | disposition home or self-care (01) ==
LOC: DI 11:26
PROVIDERS: ATTEND Family Medicine
DX: R92.8 Other abnormal and inconclusive findings on diagnostic imaging of breast (principal)
CPT/HCPCS: 76642

== ENCOUNTER 2020-07-05 08:00 | Outpatient (CLI) | payer MEDICAID | END 2020-07-05 23:59 | disposition home or self-care (01) | LOC: LAB.R 08:00 | PROVIDERS: ATTEND Physician Assistant | DX: R39.15 Urgency of urination (principal) | CPT/HCPCS: 87077; 87086; 87181 ==

== ENCOUNTER 2021-05-23 13:45 | Emergency (ER) | payer MEDICAID ==
[2021-05-23] MEDS ORDERED: diphenhydrAMINE 25 MG CAPSULE PO STA (14:08)
[2021-05-23] MEDS ORDERED: oxyCODONE 5 MG TABLET PO STA (14:08)
[2021-05-23] MEDS ORDERED: predniSONE 20 MG TABLET PO STA (14:08)
--- NOTE | 2021-05-23 14:10 | ED Physician Documentation ---
PD HPI OPHTHO - Stated complaint Stated Complaint: EYE SWELLING - Chief complaint Chief Complaint: Heent - History obtained from History obtained from: Patient (55-year-old woman has had recurrent issues with bilateral lid swelling, eye redness and inflammation and she feels like there is glass in her eye. She has seen an eye doctor and a social media content manager without specific etiology identified. 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 TECHNOLOGIST: None : Other HEENT: Other Psych: Claustrophobia Musculoskeletal: Osteoarthritis, Rheumatoid arthritis, Chronic back pain, Other Derm: Other - Past Surgical History Past Surgical History: Yes /STAFF TECHNOLOGIST: Hysterectomy, Other - Present Medications Home Medications: Ambulatory Orders Medication Instructions Recorded Confirmed Escitalopram Oxalate [Lexapro] 20 mg ORAL DAILY 08/03/14 11/14/17 Trazodone HCl 50 mg ORAL DAILY PRN 08/03/14 11/14/17 diazePAM [Diazepam] 5 - 10 mg PO PRN PRN 04/26/17 11/14/17 raNITIdine [Zantac] 150 mg PO BID 04/26/17 11/14/17 Ondansetron HCl [Zofran] 4 mg PO Q6HR PRN #14 tablet 06/19/17 11/14/17 oxyCODONE/ACET 5/325 [Percocet 5 1 - 2 each PO Q6H PRN #14 tablet 06/19/17 11/14/17 mg/325 mg] predniSONE [Prednisone] 1 tab PO DAILY PRN 11/14/17 11/14/17 Famotidine [Pepcid] 20 mg PO BID PRN #60 tablet 01/09/19 predniSONE [Prednisone] 60 mg PO DAILY #12 tablet 01/09/19 Cetirizine [ZyrTEC] 10 mg PO DAILY #15 tablet 07/26/19 Ketotifen Fumarate 2 drops EACHEYE QID PRN #10 ml 07/26/19 Oxycodone HCl/Acetaminophen 1 each PO Q6H PRN #14 tablet 07/26/19 [Percocet 5-325 mg Tablet] dexAMETHasone [Decadron] 4 mg PO DAILY #7 tablet 07/26/19 Oxycodone HCl/Acetaminophen 1 - 2 each PO Q6H PRN #10 tablet 08/22/19 [Percocet 5-325 mg Tablet] predniSONE [Deltasone] 10 mg PO ONCE #26 tablet 08/22/19 Oxycodone HCl 5 - 10 mg PO Q6H PRN #10 tablet 01/06/20 predniSONE [Deltasone] 10 mg PO [id number] #42 tab 01/06/20 Oxycodone HCl/Acetaminophen 1 - 2 each PO Q6H PRN #14 tablet 05/23/21 [Percocet 5-325 mg Tablet] diphenhydrAMINE [Benadryl] 25 mg PO Q4-6H PRN #20 cap 05/23/21 predniSONE [Deltasone] 20 mg PO [id number] #21 tab 05/23/21 - Allergies Allergies/Adverse Reactions: Allergies Allergy/AdvReac Type Severity Reaction Status Date / Time abatacept [From Orencia] Allergy Unknown Verified 05/23/21 13:56 codeine Allergy Nausea Verified 05/23/21 13:56 nickel Allergy Unknown Verified 05/23/21 13:57 Tetracyclines Allergy Nausea Verified 05/23/21 13:56 - Social History Does the pt smoke?: No Smoking Status: Never smoker Does the pt drink ETOH?: Yes Does the pt have substance abuse?: Yes Substance Use and Type: CBD oil / Products - Immunizations Immunizations are current?: Yes - POLST Patient has POLST: No PD ED PE NORMAL - Vitals Vital signs reviewed: Yes - General General: Alert and oriented X 3, No acute distress - HEENT HEENT: Other (Bilateral nonspecific conjunctivitis with mild swelling of the upper and lower lids.) - Neck Neck: Supple, no meningeal sign, No bony TTP - Neuro Neuro: Alert and oriented X 3, Normal speech Results - Vitals Vitals: Vital Signs - 24 hr 05/23/21 13:53 Temperature 36.7 C Heart Rate 60 Respiratory 18 Rate Blood Pressure 129/89 H O2 Saturation 99 Oxygen O2 Source Room air PD MEDICAL DECISION MAKING - ED course ED course: The syndrome is consistent with an allergic conjunctivitis. She has had luck in the past with the same medications. I am prescribing a short course of short-acting opioid pain medication for this patient. 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 I have discussed that the opioids are for short term therapy only, and will not be refilled from the ED. Departure - Departure Disposition: 01 Home, Self Care Clinical Impression: Allergic conjunctivitis Qualifiers: Laterality: bilateral Qualified Code(s): H10.13 - Acute atopic conjunctivitis, bilateral Condition: Good Record reviewed to determine appropriate education?: Yes Instructions: ED Allergic Conjunctivitis Prescriptions: diphenhydrAMINE [Benadryl] 25 mg PO Q4-6H PRN #20 cap PRN Reason: Itching predniSONE [Deltasone] 20 mg PO [id number] #21 tab Oxycodone HCl/Acetaminophen [Percocet 5-325 mg Tablet] 1 - 2 each PO Q6H PRN #14 tablet PRN Reason: pain Comments: Talk with your doctor about steroid drops for the next episode. Return for new or worsening symptoms. I am prescribing a short course of narcotic pain medication for you. These are potentially dangerous and addictive medications that should be used carefully. These medications may constipate you. Take an sjxb-ahf-mplsira stool softener (docusate) twice daily with plenty of water while taking these medications. If y ou go 24 hours without a bowel movement, take gqay-ejd-gdkzlgj miralax, per package instructions. Do not drink or drive while taking these medications. If you received narcotic or sedating medications while in the emergency department, do not drive for 24 hours. Store this medication in a safe, secure place and out of reach of children. It is a violation of federal law to give or sell this medication to another person or to use in a manner other than prescribed. The ED will not refill narcotic prescriptions, including prescriptions lost or stolen. To dispose of unwanted medications: 1. [facility] [address] in [place] has a medication drop box. They accept prescription medications (in pill form) Wednesday through Wednesday 9:00 a.m. to 5:00 p.m. 2. The [facility] [employer] accepts prescription medications (in pill form only) for disposal year round. Call for more information. 3. Contact the [facility] for the next [facility] sponsored prescription drug collection event. , [phone], or [phone]; Note that many narcotic pain relievers also contain Tylenol/acetaminophen. Please ensure that your total dose of acetaminophen from all sources does not exceed 3 g (3000 mg) per day.
[2021-05-23 14:35] VITALS: BP 124/85
== END 2021-05-23 14:39 | disposition home or self-care (01) ==
LOC: ED 13:45
DX: H10.13 Acute atopic conjunctivitis, bilateral (principal)
CPT/HCPCS: 99282; 99283; A9270; J7512

== ENCOUNTER 2021-08-26 14:22 | Outpatient (CLI) | payer MEDICAID | END 2021-08-26 23:59 | disposition home or self-care (01) | LOC: LAB.S 14:22 | PROVIDERS: ATTEND Physician Assistant Medical | DX: R30.0 Dysuria (principal) | CPT/HCPCS: 87086 ==

== ENCOUNTER 2021-10-24 15:19 | Emergency (ER) | payer MEDICARE, MEDICAID ==
[2021-10-24 16:02] LABS: BASOPHILS % (AUTO) 0.8 %; EOSINOPHILS # (AUTO) 0.2 10^3/uL (0.0-0.7); EOSINOPHILS % (AUTO) 2.9 %; HCT - HEMATOCRIT 40.3 % (37.0-47.0); HGB - HEMOGLOBIN 13.7 g/dL (12.0-16.0); LYMPHOCYTES # (AUTO) 1.5 10^3/uL (1.5-3.5); LYMPHOCYTES % (AUTO) 29.1 %; MEAN CORPUSCULAR HEMOGLOBIN 29.4 pg (27.0-31.0); MEAN CORPUSCULAR VOLUME 86.5 fL (81.0-99.0); MEAN PLATELET VOLUME 9.7 fL (7.9-10.8); MONOCYTES # (AUTO) 0.4 10^3/uL (0.0-1.0); MONOCYTES % (AUTO) 6.9 %; NEUTROPHILS # (AUTO) 3.2 10^3/uL (1.5-6.6); NEUTROPHILS % (AUTO) 60.1 %; PLT - PLATELET COUNT 190 10^3/uL (130-450); RED BLOOD COUNT 4.66 10^6/uL (4.20-5.40); RED CELL DISTRIBUTION WIDTH 11.8 % (12.0-15.0); WHITE BLOOD COUNT 5.2 x10^3/uL (4.8-10.8)
[2021-10-24 16:12] LABS: ALBUMIN 4.2 g/dL (3.2-5.5); ALBUMIN/GLOBULIN RATIO 1.4 (1.0-2.2); BILIRUBIN,TOTAL 0.5 mg/dL (0.2-1.0); CALCIUM 9.5 mg/dL (8.5-10.3); POTASSIUM 3.6 mmol/L (3.5-5.0); TOTAL PROTEIN 7.3 g/dL (6.7-8.2)
--- NOTE | 2021-10-24 16:27 | XRAY Report ---
PROCEDURE: Chest 1 View X-Ray INDICATIONS: Chest pain TECHNIQUE: One view of the chest was acquired. COMPARISON: None FINDINGS: Surgical changes and devices: None. Lungs and pleura: No pleural effusions or pneumothorax. Lungs are clear. Mediastinum: Mediastinal contours appear normal. Heart size is normal. Bones and chest wall: No suspicious bony lesions. Age-appropriate degenerative changes are seen. O verlying soft tissues appear unremarkable. IMPRESSION: Unremarkable single view chest for age. Reviewed by: Juliocesar Elena MD on 10/24/2021 3:26 PM [place] Approved by: Juliocesar Elena MD on 10/24/2021 3:26 PM [facility] Station ID: [id number]
[2021-10-24] MEDS ORDERED: METOPROLOL SUCCINATE 50 MG TABLET PO STA (17:17)
--- NOTE | 2021-10-24 17:17 | ED Physician Documentation ---
PD HPI CHEST PAIN - Stated complaint Stated Complaint: CHEST PX - Chief complaint Chief Complaint: Cardiac - History obtained from History obtained from: Patient - Additional information Additional information: 56-year-old woman who as long as she can remember she has had palpitations. They have been more frequent lately and are associated with dizziness and fatigue. They are hard to predict and sometimes wake her up. Feels like skipped beats and she has heard it with a step a scope. She saw her physician who referred her to night coordinator, that will be in a few weeks. Review of Systems Ten Systems: 10 systems reviewed and negative Constitutional: denies: Fever, Chills Cardiac: reports: Chest pain / pressure, Palpitations. denies: Pedal edema, Calf pain Respiratory: denies: Hemoptysis, Wheezing PD PAST MEDICAL HISTORY - Past Medical History Cardiovascular: None Respiratory: Other Neuro: Migraines Endocrine/Autoimmune: None GI: GERD UNIT DIRECTOR: None : Other HEENT: Other Psych: Claustrophobia Musculoskeletal: Osteoarthritis, Rheumatoid arthritis, Chronic back pain, Other Derm: Other - Past Surgical History Past Surgical History: Yes /UNIT DIRECTOR: Hysterectomy, Other - Present Medications Home Medications: Ambulatory Orders Medication Instructions Recorded Confirmed Escitalopram Oxalate [Lexapro] 20 mg ORAL DAILY 08/03/14 11/14/17 Trazodone HCl 50 mg ORAL DAILY PRN 08/03/14 11/14/17 diazePAM [Diazepam] 5 - 10 mg PO PRN PRN 04/26/17 11/14/17 raNITIdine [Zantac] 150 mg PO BID 04/26/17 11/14/17 Ondansetron HCl [Zofran] 4 mg PO Q6HR PRN #14 tablet 06/19/17 11/14/17 oxyCODONE/ACET 5/325 [Percocet 5 1 - 2 each PO Q6H PRN #14 tablet 06/19/17 11/14/17 mg/325 mg] predniSONE [Prednisone] 1 tab PO DAILY PRN 11/14/17 11/14/17 Famotidine [Pepcid] 20 mg PO BID PRN #60 tablet 01/09/19 predniSONE [Prednisone] 60 mg PO DAILY #12 tablet 01/09/19 Cetirizine [ZyrTEC] 10 mg PO DAILY #15 tablet 07/26/19 Ketotifen Fumarate 2 drops EACHEYE QID PRN #10 ml 07/26/19 Oxycodone HCl/Acetaminophen 1 each PO Q6H PRN #14 tablet 07/26/19 [Percocet 5-325 mg Tablet] dexAMETHasone [Decadron] 4 mg PO DAILY #7 tablet 07/26/19 Oxycodone HCl/Acetaminophen 1 - 2 each PO Q6H PRN #10 tablet 08/22/19 [Percocet 5-325 mg Tablet] predniSONE [Deltasone] 10 mg PO ONCE #26 tablet 08/22/19 Oxycodone HCl 5 - 10 mg PO Q6H PRN #10 tablet 01/06/20 predniSONE [Deltasone] 10 mg PO [id number] #42 tab 01/06/20 Oxycodone HCl/Acetaminophen 1 - 2 each PO Q6H PRN #14 tablet 05/23/21 [Percocet 5-325 mg Tablet] diphenhydrAMINE [Benadryl] 25 mg PO Q4-6H PRN #20 cap 05/23/21 predniSONE [Deltasone] 20 mg PO [id number] #21 tab 05/23/21 Metoprolol Succinate [Toprol Xl] 50 mg PO DAILY #30 tablet 10/24/21 - Allergies Allergies/Adverse Reactions: Allergies Allergy/AdvReac Type Severity Reaction Status Date / Time abatacept [From Orencia] Allergy Unknown Verified 10/24/21 15:31 codeine Allergy Nausea Verified 10/24/21 15:31 nickel Allergy Unknown Verified 10/24/21 15:31 Tetracyclines Allergy Nausea Verified 10/24/21 15:31 - Social History Does the pt smoke?: No Smoking Status: Never smoker Does the pt drink ETOH?: Yes Does the pt have substance abuse?: Yes - Immunizations Immunizations are current?: Yes - POLST Patient has POLST: No PD ED PE NORMAL - Vitals Vital signs reviewed: Yes - General General: Alert and oriented X 3, No acute distress - HEENT HEENT: PERRL, EOMI - Neck Neck: Supple, no meningeal sign, No bony TTP - Cardiac Cardiac: RRR, No murmur - Respiratory Respiratory: No respiratory distress, Clear bilaterally - Abdomen Abdomen: Non tender - Extremities Extremities: No edema, No calf tenderness / cord - Neuro Neuro: Alert and oriented X 3, Normal speech - Psych Psych: Normal affect Results - Vitals Vitals: Vital Signs - 24 hr 10/24/21 10/24/21 10/24/21 15:24 17:21 17:23 Temperature 36.4 C L Heart Rate 77 72 69 Respiratory 18 16 22 Rate Blood Pressure 122/84 H 143/98 H 143/98 H O2 Saturation 98 98 96 Oxygen O2 Source Room air - EKG (time done) 1527 Rate: Rate (enter#) (69) Rhythm: NSR, LAE [place]: Normal Intervals: Normal CT Ischemia: Non specific changes - Labs Labs: Laboratory Tests 10/24/21 10/24/21 10/24/21 15:51 15:51 15:51 WBC 5.2 RBC 4.66 Hgb 13.7 Hct 40.3 MCV 86.5 MCH 29.4 MCHC 34.0 RDW 11.8 L Plt Count 190 MPV 9.7 Neut # (Auto) 3.2 Lymph # (Auto) 1.5 [place] # (Auto) 0.4 Eos # (Auto) 0.2 Baso # (Auto) 0.0 Absolute Nucleated RBC 0.00 Nucleated RBC % 0.0 Sodium 135 Potassium 3.6 Chloride 97 L Carbon Dioxide 29 Anion Gap 9.0 BUN 14 Creatinine 1.0 Estimated GFR (MDRD) 57 L Glucose 99 Calcium 9.5 Total Bilirubin 0.5 AST 21 ALT 21 Alkaline Phosphatase 54 Troponin I High Sens 2.4 Total Protein 7.3 Albumin 4.2 Globulin 3.1 Albumin/Globulin Ratio 1.4 Lipase 35 PD MEDICAL DECISION MAKING - ED course ED course: On the monitor she has occasional PVCs which correspond exactly with her symptoms. Not more than a few minutes. We discussed potential treatments and she would like to go ahead with beta- blockade pending follow-up with her the night coordinator in a few weeks. Departure - Departure Disposition: 01 Home, Self Care Clinical Impression: PVCs (premature ventricular contractions) Condition: Good Record reviewed to determine appropriate education?: Yes Instructions: ED Palpitations Prescriptions: Metoprolol Succinate [Toprol Xl] 50 mg PO DAILY #30 tablet Comments: I sent your prescription electronically to [facility] in [place]. Follow-up with the night coordinator as scheduled. Discharge Date/Time: 10/24/21 17:24
[2021-10-24 17:22] VITALS: BP 143/98
== END 2021-10-24 17:24 | disposition home or self-care (01) ==
LOC: ED 15:19
DX: I49.3 Ventricular premature depolarization (principal)
CPT/HCPCS: 36415; 71045; 80053; 83690; 84484; 85025; 93005; 99283; 99284; A9270

== ENCOUNTER 2021-11-25 13:37 | Outpatient (CLI) | payer MEDICARE, MEDICAID ==
[2021-11-28 12:27] LABS: NIL 0.02 IU/mL; TB1-NIL 0.01 IU/mL; TB2-NIL 0.01 IU/mL
== END 2021-11-25 13:38 | disposition home or self-care (01) ==
LOC: LAB.S 13:37
PROVIDERS: ATTEND Registered Nurse
DX: Z13.9 Encounter for screening, unspecified (principal)
CPT/HCPCS: 36415; 86480

== ENCOUNTER 2021-12-05 06:23 | Emergency (ER) | payer MEDICARE, MEDICAID ==
[2021-12-05 06:30] VITALS: BP 157/104
--- NOTE | 2021-12-05 07:16 | ED Physician Documentation ---
PD HPI SKIN - Stated complaint Stated Complaint: SWOLLEN/ITCH FACE - Chief complaint Chief Complaint: Wound - History obtained from History obtained from: Patient - History of Present Illness Timing - onset: How many days ago (3) Timing - duration: Days (3) Timing - details: Abrupt onset, Still present Location: Face (cheeks/bridge of nose/bilateral periorbital areas. Not expanding, but not improved.) Quality / character: Itchy, Burning, Discolored (red). No: Vesicular, Swelling Improved by: Benadryl (some decreased itching with Benadryl but makes her sleepy.), Other (current issue today is the pain associated and has needed PO pain meds with flare ups.). No: Oral steroids Associated symptoms: No: Fever, Myalgias, Joint pain, Headache Similar symptoms before: Diagnosis (Dx as rosacea by Derm. Has seen Rheum and ruled out lupus, per patient. No biopsies done on prior episodes. 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 : Other HEENT: Other Psych: Claustrophobia Musculoskeletal: Osteoarthritis, Rheumatoid arthritis, Chronic back pain, Other Derm: Other - Past Surgical History Past Surgical History: Yes /AWNING CRAFTSMAN: Hysterectomy, Other - Present Medications Home Medications: Ambulatory Orders Medication Instructions Recorded Confirmed Escitalopram Oxalate [Lexapro] 20 mg ORAL DAILY 08/03/14 12/05/21 Trazodone HCl 50 mg ORAL DAILY PRN 08/03/14 12/05/21 diazePAM [Diazepam] 5 - 10 mg PO PRN PRN 04/26/17 12/05/21 Famotidine [Pepcid] 20 mg PO BID PRN #60 tablet 01/09/19 12/05/21 predniSONE [Prednisone] 60 mg PO DAILY #12 tablet 01/09/19 12/05/21 diphenhydrAMINE [Benadryl] 25 mg PO Q4-6H PRN #20 cap 05/23/21 12/05/21 Metoprolol Succinate [Toprol Xl] 50 mg PO DAILY #30 tablet 10/24/21 12/05/21 Bupropion HCl [Wellbutrin Xl] 300 mg PO DAILY 12/05/21 12/05/21 Cetirizine [ZyrTEC] 10 mg PO BID #20 tablet 12/05/21 Lidocaine Jelly 2% [Xylocaine 1 applic TOP TID PRN #30 ml 12/05/21 Jelly 2%] Oxycodone HCl/Acetaminophen 1 each PO Q6H PRN #14 tablet 12/05/21 [Percocet 5-325 mg Tablet] estradioL [Estrace] 1 mg PO DAILY 12/05/21 12/05/21 - Allergies Allergies/Adverse Reactions: Allergies Allergy/AdvReac Type Severity Reaction Status Date / Time abatacept [From Orencia] Allergy Unknown Verified 12/05/21 06:33 codeine Allergy Nausea Verified 12/05/21 06:33 nickel Allergy Unknown Verified 12/05/21 06:33 Tetracyclines Allergy Nausea Verified 12/05/21 06:33 - Social History Does the pt smoke?: No Smoking Status: Never smoker Does the pt drink ETOH?: Yes Does the pt have substance abuse?: Yes - Immunizations Immunizations are current?: Yes - POLST Patient has POLST: No PD ED PE NORMAL - Vitals Vital signs reviewed: Yes - General General: Alert and oriented X 3, Well developed/nourished, Other (appears uncomfortable due to face rash.) - HEENT HEENT: PERRL, EOMI - Neck Neck: Supple, no meningeal sign, No adenopathy - Derm Derm: Normal color, Warm and dry, Other (rash of demarcated redness and swelling bilateral periorbital areas, more to lower lids, extended to bridge of nose and upper cheeks, with red bumps without pustules on nose/cheeks. Seems most c/w rosacea in that area. Unusual to be at eyelids though. ) Results - Vitals Vitals: Oxygen O2 Source Room air - Labs Labs: Laboratory Tests 12/05/21 12/05/21 12/05/21 07:53 07:53 07:53 WBC 8.2 RBC 4.68 Hgb 14.0 Hct 41.0 MCV 87.6 MCH 29.9 MCHC 34.1 RDW 12.0 Plt Count 211 MPV 9.2 Neut # (Auto) 6.4 Lymph # (Auto) 1.4 L [place] # (Auto) 0.3 Eos # (Auto) 0.0 Baso # (Auto) 0.0 Absolute Nucleated RBC 0.00 Nucleated RBC % 0.0 ESR 5 Sodium 139 Potassium 3.5 Chloride 102 Carbon Dioxide 27 Anion Gap 10.0 BUN 18 Creatinine 1.0 Estimated GFR (MDRD) 57 L Glucose 105 H Calcium 9.4 PD MEDICAL DECISION MAKING - ED course Complexity details: reviewed old records, considered differential (she states has been screened for lupus and Dx with likely rosacea. Can get repeat SUMIT/ESR while having flare to see if positive. She has flagyl gel at home, has not used it this flare. ), d/w patient Departure - Departure Disposition: Home, Self Care Clinical Impression: Facial rash, Face pain Condition: Stable Record reviewed to determine appropriate education?: Yes Follow-Up: ROBERT DIAS ARNP [Primary Care Provider] - Prescriptions: Oxycodone HCl/Acetaminophen [Percocet 5-325 mg Tablet] 1 each PO Q6H PRN #14 tablet PRN Reason: pain Lidocaine Jelly 2% [Xylocaine Jelly 2%] 1 applic TOP TID PRN #30 ml PRN Reason: Pain Cetirizine [ZyrTEC] 10 mg PO BID #20 tablet Comments: The recurrent pattern and location does make you think of rosacea or lupus-like processes. You can use topical lidocaine to help with some of the symptoms. Cool towels to the area as well. I would suggest using the metronidazole cream that you have at home twice daily for the next few days for the potential of rosacea. Continue with the prednisone you are currently taking. You can add cetirizine antihistamine twice daily and still continue the Benadryl added if needed for itching. Hopefully the cetirizine would allow for not needing as much Benadryl which can be sedating. Recheck if not improving over the next few days. I would suggest following back up with your fpga design engineer to see if they have other ideas for treatment or potential biopsy for diagnosis. I transmitted your prescriptions to [facility] in [place]. I am prescribing a short course of narcotic pain medication for you. These are potentially dangerous and addictive medications that should be used carefully. These medications may constipate you. Take an dgyv-ljq-ysjhrsk stool softener such as docusate twice daily with plenty of water while taking these medications. If you go 24 hours without a bowel movement, take gjtk-yut-jzlyoof MiraLAX, per package instructions. Do not drink or drive while taking these medications. If you received narcotic or sedating medications while in the emergency department do not drive for 24 hours. Store this medication in a safe, secure place and out of reach of children. It is a violation of federal law to give or sell this medication to another person or to use in a manner other than prescribed. The ED will not refill narcotic prescriptions, including prescriptions lost or stolen. You can dispose of unwanted medications at the [facility]'s office or at several pharmacies such as [facility]. Discharge Date/Time: 12/05/21 08:37
[2021-12-05] MEDS ORDERED: DEXAMETHASONE 10 MG/ML VIAL PO STA (07:36)
[2021-12-05] MEDS ORDERED: oxyCODONE 5 MG TABLET PO STA (07:36)
[2021-12-05] MEDS ORDERED: LIDOCAINE JELLY 2% 6 ML JEL.PF.APP TOP STA (07:36)
[2021-12-05] MEDS ORDERED: CHERRY SYRUP 10 ML UDC PO ONE (07:36)
[2021-12-05 07:55] LABS: BASOPHILS % (AUTO) 0.2 %; EOSINOPHILS % (AUTO) 0.5 %; LYMPHOCYTES # (AUTO) 1.4 10^3/uL (1.5-3.5); LYMPHOCYTES % (AUTO) 17.1 %; MEAN CORPUSCULAR HEMOGLOBIN 29.9 pg (27.0-31.0); MEAN CORPUSCULAR HGB CONC 34.1 g/dL (32.0-36.0); MEAN CORPUSCULAR VOLUME 87.6 fL (81.0-99.0); MEAN PLATELET VOLUME 9.2 fL (7.9-10.8); MONOCYTES # (AUTO) 0.3 10^3/uL (0.0-1.0); NEUTROPHILS # (AUTO) 6.4 10^3/uL (1.5-6.6); NEUTROPHILS % (AUTO) 77.8 %; PLT - PLATELET COUNT 211 10^3/uL (130-450); RED BLOOD COUNT 4.68 10^6/uL (4.20-5.40); WHITE BLOOD COUNT 8.2 x10^3/uL (4.8-10.8)
[2021-12-05 08:05] LABS: CALCIUM 9.4 mg/dL (8.5-10.3); POTASSIUM 3.5 mmol/L (3.5-5.0)
[2021-12-08 14:32] LABS: ANA SCREEN NEGATIVE (NEGATIVE)
== END 2021-12-05 08:37 | disposition home or self-care (01) ==
LOC: ED 06:23
DX: R21 Rash and other nonspecific skin eruption (principal); R51.9 Headache, unspecified
CPT/HCPCS: 36415; 80048; 85025; 85651; 86038; 99282; 99283; A9270

== ENCOUNTER 2021-12-11 19:22 | Emergency (ER) | payer MEDICARE, MEDICAID ==
--- NOTE | 2021-12-11 20:58 | ED Physician Documentation ---
History of Present Illness - Stated complaint Stated Complaint: EYES/ALLERGIC REACTION - Chief complaint Chief Complaint: Allergic Rx - History obtained from History obtained from: Patient - History of Present Illness Timing: Today Pain level now: 7 Improved by: had been improving with 60 mg QD prednisone, benadryl 50mg Q6 hours. - Additonal information Additional information: patient c/o bilateral periorbital redness associated with burning pain. She has had many previous episodes of this over past few years and has been evaluated in this ED several times (over a few years) for this, including 6 days ago. She has also been evaluated by dermatology and rheumatology without apparent etiology . She was prescribed prednisone taper on 12/08, today was 40mg dose (initial dosing was 60mg QD). she also takes benadryl 50mg PO Q6 hours. She also was prescribed erythromycin (topical) 12/10. Her symptoms had been improving with these medications but tonight she had sudden worsening (swelling, erythema, pain) when she got home from work. Without specific intervention, her symptoms have subsequently improved but she says that based on previous episodes, she is worried the symptoms will progress if there is no change in her current medication regimen. 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 : Other HEENT: Other Psych: Claustrophobia Musculoskeletal: Osteoarthritis, Rheumatoid arthritis, Chronic back pain, Other Derm: Other - Past Surgical History Past Surgical History: Yes /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: Hysterectomy, Other - Present Medications Home Medications: Ambulatory Orders Medication Instructions Recorded Confirmed Escitalopram Oxalate [Lexapro] 20 mg ORAL DAILY 08/03/14 12/05/21 Trazodone HCl 50 mg ORAL DAILY PRN 08/03/14 12/05/21 diazePAM [Diazepam] 5 - 10 mg PO PRN PRN 04/26/17 12/05/21 Famotidine [Pepcid] 20 mg PO BID PRN #60 tablet 01/09/19 12/05/21 predniSONE [Prednisone] 60 mg PO DAILY #12 tablet 01/09/19 12/05/21 diphenhydrAMINE [Benadryl] 25 mg PO Q4-6H PRN #20 cap 05/23/21 12/05/21 Metoprolol Succinate [Toprol Xl] 50 mg PO DAILY #30 tablet 10/24/21 12/05/21 Bupropion HCl [Wellbutrin Xl] 300 mg PO DAILY 12/05/21 12/05/21 Cetirizine [ZyrTEC] 10 mg PO BID #20 tablet 12/05/21 Lidocaine Jelly 2% [Xylocaine 1 applic TOP TID PRN #30 ml 12/05/21 Jelly 2%] Oxycodone HCl/Acetaminophen 1 each PO Q6H PRN #14 tablet 12/05/21 [Percocet 5-325 mg Tablet] estradioL [Estrace] 1 mg PO DAILY 12/05/21 12/05/21 Lidocaine Jelly 2% [Xylocaine 1 applic TOP TID PRN #30 ml 12/11/21 Jelly 2%] Oxycodone HCl/Acetaminophen 1 - 2 each PO Q6H PRN #10 tablet 12/11/21 [Percocet 5-325 mg Tablet] predniSONE [Deltasone] 60 mg PO DAILY 3 Days #9 tablet 12/11/21 - Allergies Allergies/Adverse Reactions: Allergies Allergy/AdvReac Type Severity Reaction Status Date / Time abatacept [From Orencia] Allergy Unknown Verified 12/11/21 19:28 codeine Allergy Nausea Verified 12/11/21 19:28 nickel Allergy Unknown Verified 12/11/21 19:28 Tetracyclines Allergy Nausea Verified 12/11/21 19:28 - Social History Does the pt smoke?: No Smoking Status: Never smoker Does the pt drink ETOH?: Yes Does the pt have substance abuse?: Yes - Immunizations Immunizations are current?: Yes - POLST Patient has POLST: No PD ED PE NORMAL - Vitals Vital signs reviewed: Yes - General General: Alert and oriented X 3, No acute distress, Well developed/nourished - HEENT HEENT: PERRL, EOMI PD ED PE EXPANDED - Eyes Eyes: Nl conjunctiva/sclera, Other (bilateral periorbital erythema with mild swelling. ). No: Eyelid swelling Results - Vitals Vitals: Vital Signs - 24 hr 12/11/21 12/11/21 19:28 21:59 Temperature 36.5 C 37.0 C Heart Rate 65 52 L Respiratory 16 17 Rate Blood Pressure 137/96 H 146/93 H O2 Saturation 98 99 Oxygen O2 Source Room air PD MEDICAL DECISION MAKING - ED course Complexity details: reviewed old records, considered differential, d/w patient ED course: presents with bilateral periorbital erythema, which she has had episodically for several years, etiology not determined despite evaluations by dermatology and rheumatology. She was T+R 12/05 from this ED for same; at that time, she already was on prednisone. 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 She has already had improvement since a few hours ago when she got home from work and noted significant worsening of the symptoms. She is given 20mg PO prednisone in ED and rx for 60mg prednisone provided for next three days, at which time she is to resume the taper as previously prescribed. She is given oxycodone in ED for the burning pain and rx for percocet provided. Topical lidocaine applied in ED (this was applied on previous visit and she says she had significant pain relief with this). I am prescribing a short course of short-acting opioid pain medication for this patient. I have reviewed the patients [employer] ADMINISTRATOR and no concerning findings were noted. I have discussed that the opioids are for short term therapy only, and will not be refilled from the ED Departure - Departure Disposition: 01 Home, Self Care Clinical Impression: Periorbital erythema Condition: Good Instructions: ED Erythema Follow-Up: ROBERT DIAS ARNP [Primary Care Provider] - Prescriptions: predniSONE [Deltasone] 60 mg PO DAILY 3 Days #9 tablet Oxycodone HCl/Acetaminophen [Percocet 5-325 mg Tablet] 1 - 2 each PO Q6H PRN #10 tablet PRN Reason: pain Lidocaine Jelly 2% [Xylocaine Jelly 2%] 1 applic TOP TID PRN #30 ml PRN Reason: Pain Comments: Prescriptions for topical lidocaine, percocet, and prednisone have been electronically submitted to [facility] in [place]. The prednisone prescription is for 60mg once per day for the next three days; you will resume the previously prescribed taper in 4 days. I am prescribing a short course of narcotic pain medication for you. These are potentially dangerous and addictive medications that should be used carefully. These medications may constipate you. Take an dadx-wbs-gikoafz stool softener (docusate) twice daily with plenty of water while taking these medications. If you go 24 hours without a bowel movement, take ccxt-rpl-kldkakn miralax, per package instructions. Do not drink or drive while taking these medications. If you received narcotic or sedating medications while in the emergency depa rtment, do not drive for 24 hours. Store this medication in a safe, secure place and out of reach of children. It is a violation of federal law to give or sell this medication to another person or to use in a manner other than prescribed. The ED will not refill narcotic prescriptions, including prescriptions lost or stolen. To dispose of unwanted medications: 1. [facility] at [address] in [place] has a medication drop box. They accept prescription medications (in pill form) Wednesday through Wednesday 9:00 a.m. to 5:00 p.m. 2. [facility] accepts prescription medications (in pill form only) for disposal year round. Call for more information. 3. Contact the [facility] for the next [facility] sponsored prescription drug collection event. , [phone], or [phone]; Discharge Date/Time: 12/11/21 22:47
[2021-12-11 22:00] VITALS: BP 146/93
[2021-12-11] MEDS ORDERED: predniSONE 20 MG TABLET PO STA (22:30)
[2021-12-11] MEDS ORDERED: LIDOCAINE JELLY 2% 6 ML JEL.PF.APP TOP STA (22:30)
[2021-12-11] MEDS ORDERED: oxyCODONE 5 MG TABLET PO STA (22:31)
[2021-12-11] MEDS ORDERED: diphenhydrAMINE 25 MG CAPSULE PO STA (22:32)
== END 2021-12-11 22:47 | disposition home or self-care (01) ==
LOC: ED 19:22
DX: L53.8 Other specified erythematous conditions (principal); H57.13 Ocular pain, bilateral
CPT/HCPCS: 99283; A9270; J7512

== ENCOUNTER 2022-03-22 08:00 | Outpatient (CLI) | payer MEDICARE, MEDICAID | END 2022-03-22 23:59 | disposition home or self-care (01) | LOC: LAB 08:00 | PROVIDERS: ATTEND Physician Assistant | DX: R30.0 Dysuria (principal) | CPT/HCPCS: 87086 ==

== ENCOUNTER 2023-03-08 13:26 | Outpatient (CLI) | payer MEDICARE, MEDICAID ==
--- NOTE | 2023-03-09 08:23 | SLEEP CARE CONSULTATION ---
Information from patient questionnaire entered by Raquel Marshall. I have reviewed and concur with the information entered by Raquel Marshall. This document represents the service I personally performed and the decisions made by me, Wicho Mcghee MD, [facility]. History of Present Illness Service Date and Time: 03/08/2023 1326 Reason for Visit: New patient Chief Complaint: reports: Insomnia, Unrefreshed sleep, Snoring, Excessive daytime sleepiness, Observed pauses in breathing, Fatigue Date of Onset: SINCE CHILDHOOD Usual bedtime: 10PM-12AM Time it takes to fall asleep: VARIES 5-60MIN Snores at night: Yes Observed to quit breathing while asleep: Yes Sleeps alone due to snoring: Yes Number of times waking at night: OFF MEDS 3-5 ON MEDS 0-1 Reasons for waking at night: reports: Gasping for air, Pain, Bathroom, Other (NOISE) Toss, Turn, or Twitch while sleeping: Yes Recalls having dreams: Yes Usually gets out of bed at: 8-11PM Feels refreshed in the morning: No Morning headache: No Sleepy or fatigued during the day: Yes Ever fallen asleep while driving: Yes Takes day naps: No Dreams during day naps: No Prior sleep studies: Yes Year and Where: 2021 [facility] Additional HPI information: I have the pleasure of seeing Ms. Marsh today regarding the possibility of her having obstructive sleep apnea. As you know, she is a 57-year-old lady who complains of insomnia, loud snore, observed apneas, unrefreshed sleep, persistent fatigue, and excessive daytime sleepiness since childhood. She had a sleep study last year at [facility] in [place] which showed severe obstructive sleep apnea-hypopnea. She recalls being told that she quit breathing 20 times per hour. The study was a home sleep apnea test (HSAT). She was prescribed a CPAP through [facility]. Despite switching masks numerous times, she still could not use the CPAP. She finally returned it. The patient tells me that she normally goes to bed around 10 pm - midnight, and it takes her approximately 5 - 60 minutes to fall asleep. She has been told that she snores loudly and irregularly at night. She has also been observed to stop breathing in her sleep. Her has to sleep in a separate room because of her snore. She can recall waking up on the average of 3 - 5 times during the night. Most of the time she wakes up because of having to use the bathroom. She has awakened occasionally because of her own snoring, choking, and having to gasp for air. There is a lot of tossing and turning in her sleep. She has somniloquy (sleep talking) but not somnambulism (sleep walking). Generally, she can recall having dreams. In the morning she usually gets up out of bed around 8 a.m. 1 p.m. not feeling refreshed nor rested. She usually does not have a morning headache. During the day she complains of feeling does not feel sleepy and fatigued. Her score on [place] Sleepiness Scale is 13 out of 24. She has fallen asleep while driving and has gone out of the rona. She usually does not take naps during the day. Upon falling asleep during the day she denies having vivid dreams. She has never had sleep paralysis, experienced cataplexy or symptoms of restless leg syndrome. She denies having impaired concentration during the day. 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 Patient is and lives in [place]. Have you smoked in the past 12 months: No Alcohol use: No Caffeine use: Yes Caffeine amount and frequency: SINGLE SHOT MOCHA 0-2 X WEEKLY Family History Family history of sleep disordered breathing: Yes Family Hx Sleep Apnea: Mother: Snoring, Father: Snoring, Sleep apnea - Treated, Sibling: Snoring Allergies and Home Medications Known drug allergies: Yes (SEE LIST ) Drug allergies reviewed: Yes Home medication list reviewed: Yes Allergy and home medication list: Allergies abatacept [From Orencia] Allergy (Verified 03/05/23 14:22) Unknown codeine Allergy (Verified 03/05/23 14:22) Nausea nickel Allergy (Verified 03/05/23 14:22) Unknown Tetracyclines Allergy (Verified 03/05/23 14:22) Nausea Review of Systems Weight gain over past 5 years: 10 Cardiovascular: reports: high blood pressure Respiratory: reports: chronic cough Gastrointestinal: reports: difficulty swallowing Urinary: denies: incontinence, frequency, urgency, impotence, other Neurological: reports: headaches Psychiatric: reports: anxiety, depression, claustrophobia Ear/Nose/Throat: reports: dry mouth/throat, wisdom teeth removed Endocrine: reports: sluggishness, unexplained weakness Musculoskeletal: reports: joint pain, neck pain, back pain, joint swelling, muscle pain or cramping, mobility problems Immunologic: reports: sneezing, allergies to food or environment Physical Exam Vital signs obtained and entered by: RAQUEL Wilder MA Blood Pressure: 108/60 (LEFT ARM) Cuff size: regular Heart Rate: 52 O2 Saturation: 98 Height: 5 ft 7 in Weight: 163 lb Body Mass Index: 25.5 BMI Classification: Overweight Neck circumference: 13.75 Mood/affect: normal HEENT: No craniofacial malformation Nostrils: patent to airflow Turbinates: normal Septum: midline Mouth and throat: narrow oropharynx Soft palate: long Hard palate: normal Uvula: normal Uvula visualization: 50% Mallampati Class II Tongue: normal in size Tonsils: small Chin and jaw: normal size and position Neck: normal w/o lymphadenopathy or thyromegaly Heart: regular rate and rhythm Lungs: clear bilaterally Neurologic: intact Impression and Plan IMPRESSION: 1. Obstructive Sleep Apnea-Hypopnea Syndrome, as previously diagnosed by a home sleep apnea test (HSAT). The severity is unknown as we do not have a copy of her test report. She gave CPAP a good try. Alternative krystyna atment options were discussed. Narrow oropharynx and obesity are common predisposing factors for obstructive sleep apnea-hypopnea syndrome. Untreated obstructive sleep apnea can also cause hypertension. In order to determine the best treatment option for her, the exact severity of obstructive sleep apnea- hypopnea is necessary. The home sleep apnea test (HSAT) she had may not be accurate and lack the ability to differentiate between obstructive apneas and central apneas, which is critical in the hypoglossal nerve stimulation therapy. Therefore, I recommend proceeding to the in-laboratory polysomnography to accurately gauge the severity of the sleep-related breathing disorder. If mild, she would be a good candidate for oral appliance therapy. On the other hand, if severe, the Inspire therapy (hypoglossal nerve stimulation) would be appropriate. Weight loss is always helpful. 2. Insomnia, due to irregular sleep-wake pattern and her trying to get as much asleep as possible. I will go over the sleep hygiene with her after the sleep study. Plan: 1. Schedule an in-laboratory polysomnography. 2. Avoid long distance driving or when feeling sleepy. 3. Avoid alcohol, sedative and muscle relaxant around bedtime. 4. Attempt to lose some weight. Follow up with Sleep Care in: 1-2 months Plan: In-lab PSG Visit Type: In Office Time Spent with Patient (minutes): 15 Provider Statement: I spent 100% of the Face to Face Visit with the patient with greater than 50% spent counseling the patient and coordination of care.
[2023-03-09 08:25] VITALS: BP 108/60
== END 2023-03-08 13:27 | disposition home or self-care (01) ==
LOC: SC 13:26
PROVIDERS: ATTEND Internal Medicine Pulmonary Disease
DX: G47.33 Obstructive sleep apnea (adult) (pediatric) (principal); E66.3 Overweight; Z68.25 Body mass index [BMI] 25.0-25.9, adult
CPT/HCPCS: 99202; G0463; 99212

== ENCOUNTER 2023-04-07 12:39 | Outpatient (CLI) | payer MEDICARE, MEDICAID ==
--- NOTE | 2023-04-07 15:08 | DEXA Report ---
PROCEDURE: Dexa Spine and/or Hip INDICATIONS: POST MENOPAUSAL TECHNIQUE: Dual energy x-ray absorptiometry (DXA) was performed on a Astaro System. Regions measur ed are the AP Spine, femoral neck, and if needed forearm. COMPARISON: None FINDINGS: Lumbar Spine: Bone Mineral Density 1.299 g/cm/cm,T score 1.0. Normal Left Femoral Neck: Bone Mineral Density 0.940 g/cm/cm, T score -0.7. Normal Left Hip: Bone Mineral Density 1.037 g/cm/cm,T score 0.2. Normal (T score greater or equal to -1.0: NORMAL) (T score from -1.1 to -2.4: OSTEOPENIA) (T score less than or equal to -2.5 to: OSTEOPOROSIS) Impression: By WHO criteria, this patient has normal bone density. Patients with diagnosis of osteoporosis or osteopenia should have regular bone mineral density assess ment. For those eligible for Medicare, routine testing is allowed once every 2 years. Testing frequ ency can be increased for patients who have rapidly progressing disease or for those who are receivin g medical therapy to restore bone mass. Reviewed by: Kayla Leung MD on 04/07/2023 3:07 PM PDT Approved by: Kayla Leung MD on 04/07/2023 3:07 PM PDT Station ID: [id number]
== END 2023-04-07 12:40 | disposition home or self-care (01) ==
LOC: DI 12:39
PROVIDERS: ATTEND Family Medicine
DX: N95.9 Unspecified menopausal and perimenopausal disorder (principal)

== ENCOUNTER 2023-06-15 08:00 | Outpatient (CLI) | payer MEDICARE, MEDICAID | END 2023-06-15 23:59 | disposition home or self-care (01) | LOC: LAB 08:00 | PROVIDERS: ATTEND Physician Assistant Medical | DX: R30.0 Dysuria (principal) | CPT/HCPCS: 87077; 87086; 87181 ==

== ENCOUNTER 2023-07-22 10:36 | Outpatient (CLI) | payer MEDICARE, MEDICAID ==
--- NOTE | 2023-07-22 17:15 | XRAY Report ---
PROCEDURE: Ankle 3 View RT INDICATIONS: SPRAIN OF OTHER LIGAMENTOF RIGHT ANKLE TECHNIQUE: 3 views of the ankle were acquired. COMPARISON: None FINDINGS: Bones: No fractures or dislocations. Ankle mortise is normally aligned. No suspicious bony lesions . Soft tissues: Unremarkable without significant soft tissue swelling. No radiopaque foreign body. IMPRESSION: Unremarkable ankle radiographs Reviewed by: Easton Mccarty MD on 07/22/2023 4:14 PM AKDT Approved by: Easton Mccarty MD on 07/22/2023 4:14 PM AKDT Station ID: [id number]
== END 2023-07-22 10:37 | disposition home or self-care (01) ==
LOC: DI.S 10:36
PROVIDERS: ATTEND Physician Assistant
DX: S93.491A Sprain of other ligament of right ankle, initial encounter (principal)

== ENCOUNTER 2023-09-01 11:08 | Outpatient (CLI) | payer MEDICARE, MEDICAID ==
--- NOTE | 2023-09-01 10:51 | SLEEP CARE CONSULTATION ---
Information from patient questionnaire entered by Raquel Marshall. I have reviewed and concur with the information entered by Raquel Marshall. This document represents the service I personally performed and the decisions made by me, Kim Jama ARNP. History of Present Illness Service Date and Time: 09/01/2023 1100 Reason for follow up: six month (F/U NEVER DID SLEEP STUDY) Prior sleep studies: Yes Year and Where: 2021 [facility] additional information: I had the pleasure of seeing JACKIE RUANO today regarding the possibility of her having a sleep disorder. She is being seen via telephone visit today. She has a history of previous diagnosis of sleep apnea but is not currently using PAP therapy. Her current complaints are unrefreshed sleep, daytime sleepiness, insomnia, frequent night awakenings, snoring and observed pauses in breathing. She is taking sleep aides to be able to sleep. The patient tells me that she normally goes to bed around 10-11 pm, and it takes her approximately 1-2 hours to fall asleep. She has been told that she snores loudly and irregularly at night. She has been observed to stop breathing in her sleep. She can recall waking up on the average of 1-2 times during the night, sometimes more if don't take medication for sleep. Most of the time she wakes up because of bathroom or unknown reasons. She has occasionally awakened for her own snoring, choking, and having to gasp for air. There is not a lot of tossing and turning in her sleep. Generally she can recall having dreams. She usually wakes up at 0900 and does not feel refreshed. She usually does not have a morning headache. During the day she complains of feeling sleepy and fatigued. She has never fallen asleep while driving nor has any accident due to sleepiness. She usually does not take naps during the day. If she naps, upon falling asleep during the day she denies having vivid dreams. She reports having impaired concentration during the day. There is somniloquy (sleep talking) but no somnambulism (sleep walking). She has never experienced sleep paralysis, cataplexy, or symptoms of restless leg syndrome. Sleep Study - Results Prior sleep studies: Yes Year and Where: 2021 [facility] Subjective Initial [place] Sleepiness Scale score: 13 (03/08/23) Current [place] Sleepiness Scale score: 7 (09/01/23) Allergies and Home Medications Known drug allergies: Yes (as listed) Drug allergies reviewed: Yes Home medication list reviewed: Yes (no changes) Allergy and home medication list: Allergies abatacept [From Orencia] Allergy (Verified 08/31/23 14:53) Unknown codeine Allergy (Verified 08/31/23 14:53) Nausea nickel Allergy (Verified 08/31/23 14:53) Unknown Tetracyclines Allergy (Verified 08/31/23 14:53) Nausea Review of Systems Review of systems same as previous: Yes (NO CHANGE) Physical Exam Vital signs obtained and entered by: RAQUEL Wilder MA Height: 5 ft 7 in (PER PT) Weight: 160 lb (PER PT) Body Mass Index: 25.0 BMI Classification: Overweight Impression and Plan 1. Suspected Obstructive Sleep Apnea-Hypopnea Syndrome, as previously diagnosed and as unrefreshed sleep, cognitive impairment, and excessive daytime sleepiness. She comes back because she now has insurance and would like to get back on treatment. I recommend proceeding to polysomnography to confirm the diagnosis and to assess severity. I obtained agreement to proceed. The pathophysiology of obstructive sleep apnea-hypopnea syndrome was discussed with the patient and health risks of cardiovascular and cerebrovascular disease if not treated. 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 Patient agreed to plan. * Schedule polysomnography. * Avoid long distance driving or driving when feeling sleepy. * Avoid alcohol, sedative and muscle relaxant around bedtime. * Attempt to lose weight. * Review instructions provided by trained office staff on how to prepare for the sleep study. * Return for follow-up after sleep study completed. Plan: PSG/HST and followup Visit Type: Telehealth Phone Video Type: Doximity Patient Location: Home Location of Provider: Office Patient agrees and consents to this telehealth visit type: Yes Patient agrees to have their insurance billed: Yes Time Spent with Patient (minutes): 11 Provider Statement: I spent 100% of the Telehealth Phone Call with the patient with greater than 50% spent counseling the patient and coordination of care.
== END 2023-09-01 11:09 | disposition home or self-care (01) ==
LOC: SC 11:08
PROVIDERS: ATTEND Nurse Practitioner Family
DX: G47.33 Obstructive sleep apnea (adult) (pediatric) (principal); E66.3 Overweight; Z68.25 Body mass index [BMI] 25.0-25.9, adult; F32.A Depression, unspecified
CPT/HCPCS: 99442

== ENCOUNTER 2023-10-06 20:32 | Outpatient (CLI) | payer MEDICARE, MEDICAID | END 2023-10-06 20:33 | disposition home or self-care (01) | LOC: SC 20:32 | PROVIDERS: ATTEND Nurse Practitioner Family | DX: G47.61 Periodic limb movement disorder (principal) | CPT/HCPCS: 95810 ==

== ENCOUNTER 2023-10-28 10:57 | Outpatient (CLI) | payer MEDICARE, MEDICAID ==
--- NOTE | 2023-10-28 10:46 | SLEEP CARE CONSULTATION ---
Information from patient questionnaire entered by Raquel Marshall. I have reviewed and concur with the information entered by Raquel Marshall. This document represents the service I personally performed and the decisions made by , Kim Jama ARNP. History of Present Illness Service Date and Time: 10/28/2023 1020 Initial [place] Sleepiness Scale score: 13 (03/08/23) Current [place] Sleepiness Scale score: 4 Additional HPI information: JACKIE RUANO returns via telephone appointment for follow up and results of the recently performed polysomnography. The patient was informed of the following findings: No significant sleep disordered breathing with an average AHI of 1.3 and musa oxygen saturation of 91%. She also had mild PLMs not contributing to sleep fragmentation. I explained the pathophysiology behind obstructive sleep apnea. Patient does not have sleep apnea and was advised how weight gain could increase the risk of developing sleep apnea in the future. Patient has light to moderate snoring. Snoring can also be treated with an oral appliance from a dentist. Advised to check insurance coverage. In addition, an ENT evaluation can be do to see if other treatment is indicated. Patient does not drink alcohol. Patient was cautioned about risks of drowsy driving until sleepiness symptoms resolve. Patient denies drowsy driving. Sleep Study - Results Type of Sleep Study: Polysomnography (COMPLETED 10/06/23) Prior sleep studies: Yes Year and Where: 2021 [facility] Polysomnography/Home Sleep Study results: IMPRESSION: The quality of the study is good. The patient had minimally reduced sleep efficiency. The sleep architecture was abnormal for sleep fragmentation and reduced amount of time spent in slow wave sleep (N3). Respiratory monitoring showed no significant sleep disordered breathing (AHI = 1.3) or hypoxia (musa oxygen saturation of 91%). The few respiratory events occurred mainly during supine REM sleep (supine AHI = 1.8; nonsupine = 0.00). Snore was light to moderate in intensity. There was mild periodic leg movement of sleep not contributing to the sleep fragmentation. Cardiac rhythm was normal sinus rhythm without significant arrhythmia. No abnormal behavior (parasomnia) observed during the night. Allergies and Home Medications Known drug allergies: Yes (as listed) Drug allergies reviewed: Yes Home medication list reviewed: Yes (no changes) Allergy and home medication list: Allergies abatacept [From Orencia] Allergy (Verified 10/26/23 12:10) Unknown codeine Allergy (Verified 10/26/23 12:10) Nausea nickel Allergy (Verified 10/26/23 12:10) Unknown Tetracyclines Allergy (Verified 10/26/23 12:10) Nausea Review of Systems Review of systems same as previous: Yes (no changes) Physical Exam Vital signs obtained and entered by: ROE WETZEL Height: 5 ft 7 in (PER PT) Weight: 161 lb 12.8 oz Body Mass Index: 25.3 BMI Classification: Overweight Impression and Plan 1. Periodic limb movement, mild, that did not fragment patients sleep. Periodic limb movement of sleep (PLMS) is characterized by episodes of repetitive limb movements that occur during sleep and usually involve the lower limbs. The etiology is unknown. Caffeine can aggravate PLMS and should be avoided. Sleep hygiene methods can also improve sleep as well as lifestyle changes such as regular exercise. Patient was advised that no treatment is needed at this time. If symptoms increase, then further evaluation is indicated. 2. Suspected Obstructive Sleep Apnea-Hypopnea Syndrome, as previously diagnosed. A in lab polysomnography was completed which did not show sleep disordered breathing but the patient did not feel she slept much at all the night of the study and that it overall felt like it was not a good representation of her sleep. She was previously diagnosed with sleep disordered breathing and was on a CPAP. She currently continues to have unrefreshed sleep, daytime sleepiness, frequent night awakenings, snoring and observed pauses in breathing. I recommend proceeding to polysomnography to confirm the diagnosis and to assess severity. I obtained agreement to proceed. The pathophysiology of obstructive sleep apnea- hypopnea syndrome was discussed with the patient and health risks of cardiovascular and cerebrovascular disease if not treated. Risks of drowsy driving discussed in detail and patient advised to avoid long distance driving and to crop puller at the first sign of drowsiness. Patient agreed to plan. 3. Snoring but no significant sleep disordered breathing. Patient does have snoring and says she also has bruxism. She would like to obtain an oral appliance and her dentist would require a prescription. Patient is advised to check if insurance will cover. A prescription for this oral appliance will be completed and sent to patient. * Schedule polysomnography/HST. * Prescription for oral appliance for snoring and bruxism * Avoid long distance driving or driving when feeling sleepy. * Maintain healthy weight with BMI at 25.3 currently. * Review instructions provided by trained office staff on how to prepare for the sleep study. * Return for follow-up after sleep study completed. Counseling Topics: Weight control Plan: HST Visit Type: Telehealth Phone Video Type: Doximity Location of Provider: Office Patient agrees and consents to this telehealth visit type: Yes Patient agrees to have their insurance billed: Yes Time Spent with Patient (minutes): 20 Provider Statement: I spent 100% of the Telehealth Phone Call with the patient with greater than 50% spent counseling the patient and coordination of care.
== END 2023-10-28 10:58 | disposition home or self-care (01) ==
LOC: SC 10:57
PROVIDERS: ATTEND Nurse Practitioner Family
DX: G47.61 Periodic limb movement disorder (principal); E66.3 Overweight; Z68.25 Body mass index [BMI] 25.0-25.9, adult; R06.83 Snoring; G47.10 Hypersomnia, unspecified; G47.8 Other sleep disorders; R06.81 Apnea, not elsewhere classified
CPT/HCPCS: 99442

== ENCOUNTER 2024-02-07 14:01 | Emergency (ER) | payer MEDICARE, MEDICAID ==
--- NOTE | 2024-02-07 17:10 | ED Physician Documentation ---
PD HPI BACK PAIN - Stated complaint Stated Complaint: LOWER BACK PX/LT FOOT PX - Chief complaint Chief Complaint: General - History obtained from History obtained from: Patient - Additional information Additional information: Pt is a 58 yo M with RA, hallux limitus with lower back pain that she woke up with 2 days ago. Also reports pain in sole of L foot has been worsening over last month. No reported trauma. No fevers, abdominal pain, saddle anesthesia, numbness/weakness, bowel or bladder incontinence. Did try anti inflammatories and muscle relaxer last night which helped along with heat. Has PCP appointment tomorrow. 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: Hysterectomy, Other - Present Medications Home Medications: Ambulatory Orders Medication Instructions Recorded Confirmed Escitalopram Oxalate [Lexapro] 20 mg ORAL DAILY 08/03/14 09/01/23 Trazodone HCl 50 mg ORAL DAILY PRN 08/03/14 09/01/23 diazePAM [Diazepam] 5 - 10 mg PO PRN PRN 04/26/17 09/01/23 Famotidine [Pepcid] 20 mg PO BID PRN #60 tablet 01/09/19 09/01/23 predniSONE [Prednisone] 60 mg PO DAILY #12 tablet 01/09/19 09/01/23 diphenhydrAMINE [Benadryl] 25 mg PO Q4-6H PRN #20 cap 05/23/21 09/01/23 Metoprolol Succinate [Toprol Xl] 50 mg PO DAILY #30 tablet 10/24/21 09/01/23 Cetirizine [ZyrTEC] 10 mg PO BID #20 tablet 12/05/21 09/01/23 Lidocaine Jelly 2% [Xylocaine 1 applic TOP TID PRN #30 ml 12/05/21 09/01/23 Jelly 2%] Oxycodone HCl/Acetaminophen 1 each PO Q6H PRN #14 tablet 12/05/21 09/01/23 [Percocet 5-325 mg Tablet] buPROPion HCL [Wellbutrin Xl] 300 mg PO DAILY 12/05/21 09/01/23 estradioL [Estrace] 1 mg PO DAILY 12/05/21 09/01/23 Lidocaine Jelly 2% [Xylocaine 1 applic TOP TID PRN #30 ml 12/11/21 09/01/23 Jelly 2%] Oxycodone HCl/Acetaminophen 1 - 2 each PO Q6H PRN #10 tablet 12/11/21 09/01/23 [Percocet 5-325 mg Tablet] predniSONE [Deltasone] 60 mg PO DAILY 3 Days #9 tablet 12/11/21 09/01/23 HYDROcod/ACETAM 5/325 [[place] 5/325] 1 tablet PO Q6H PRN #14 tablet 02/07/24 Lidocaine Patch 5% [Lidoderm Patch] 1 patch TOP DAILY PRN #10 patch 02/07/24 - Allergies Allergies/Adverse Reactions: Allergies Allergy/AdvReac Type Severity Reaction Status Date / Time abatacept [From Orencia] Allergy Unknown Verified 02/07/24 14:13 codeine Allergy Nausea Verified 02/07/24 14:13 nickel Allergy Unknown Verified 02/07/24 14:13 Tetracyclines Allergy Nausea Verified 02/07/24 14:13 - Social History Does the pt smoke?: No Smoking Status: Never smoker Does the pt drink ETOH?: Yes Does the pt have substance abuse?: Yes - Immunizations Immunizations are current?: Yes - POLST Patient has POLST: No PD ED PE NORMAL - General General: Alert and oriented X 3, No acute distress, Well developed/nourished - HEENT HEENT: Atraumatic, Moist mucous membranes, Pharynx benign - Neck Neck: Supple, no meningeal sign, No bony TTP - Cardiac Cardiac: Strong equal pulses - Respiratory Respiratory: No respiratory distress, Clear bilaterally - Abdomen Abdomen: Soft, Non tender, Non distended - Back Back: No spinal TTP, Other (Paralumbar tenderness, L>R) - Derm Derm: Warm and dry - Extremities Extremities: Other (Tenderness to ball of L foot; no redness/warmth; normal ROM at ankles/kness/hips) - Neuro Neuro: Alert and oriented X 3, No motor deficit, No sensory deficit, Normal speech Results - Vitals Vitals: Vital Signs - 24 hr 02/07/24 02/07/24 14:14 17:13 Temperature 36.5 C Heart Rate 73 68 Respiratory 16 16 Rate Blood Pressure 154/93 H 136/82 H O2 Saturation 98 100 Oxygen O2 Source Room air PD Medical Decision Making - ED course ED course: Pt with pain to lower back x few days and to sole of L foot x 1 month. Denies trauma. Offered xrays which pt declines. Tenderness to foot is on the sole and not to bony surfaces and she has PCP appointment tomorrow so feel holding off on imaging is reasonable tonight as no reportd trauma. Pt counseled on continued supportive care and will see PCP tomorrow. AMbulatory at discharge. Counseled on concerning symptoms to return for. Departure - Departure Disposition: Home, Self Care Clinical Impression: Low back strain, Left foot pain Condition: Stable Instructions: ED Sprain Strain Lumbar Prescriptions: Lidocaine Patch 5% [Lidoderm Patch] 1 patch TOP DAILY PRN #10 patch PRN Reason: pain HYDROcod/ACETAM 5/325 [[place] 5/325] 1 tablet PO Q6H PRN #14 tablet PRN Reason: Pain Comments: I sent a prescription for narcotic pain medication [facility] [place]. Please keep your appointment with your primary care doctor tomorrow. Return to the ER with any worsening. I am prescribing a short course of narcotic pain medication for you. These are potentially dangerous and addictive medications that should be used carefully. These medications may constipate you. Take an [id number] stool softener (docusate) twice daily with plenty of water while taking these medications. If you go 24 hours without a bowel movement, take [id number] miralax, per package instructions. Do not drink or drive while taking these medications. If you received narcotic or sedating medications while in the emergency department, do not drive for 24 hours. Store this medication in a safe, secure place and out of reach of children. It is a violation of federal law to give or sell this medication to another person or to use in a manner other than prescribed. The ED will not refill narcotic prescriptions, including prescriptions lost or stolen. To dispose of unwanted medications: 1. [facility] at [address] in [place] has a medication drop box. They accept prescription medications (in pill form) Wednesday through Wednesday 9:00 a.m. to 5:00 p.m. 2. [facility] [employer] accepts prescription medications (in pill form only) for disposal year round. Call for more information. 3. Contact the [facility] for the next [facility] sponsored prescription drug collection event. , [phone], or [phone]; Note that many narcotic pain relievers also contain Tylenol/acetaminophen. Please ensure that your total dose of acetaminophen from all sources does not exceed 3 g (3000 mg) per day. Forms: PCP List Discharge Date/Time: 02/07/24 17:13
[2024-02-07 17:21] VITALS: BP 136/82; O2SAT 100
== END 2024-02-07 17:13 | disposition home or self-care (01) ==
LOC: ED 14:01
DX: S39.012A Strain of muscle, fascia and tendon of lower back, initial encounter (principal); M79.672 Pain in left foot; X58.XXXA Exposure to other specified factors, initial encounter; Z79.899 Other long term (current) drug therapy
CPT/HCPCS: 99282; 99283

== ENCOUNTER 2024-04-18 08:00 | Outpatient (CLI) | payer MEDICARE, MEDICAID | END 2024-04-18 23:59 | disposition home or self-care (01) | LOC: LAB.N 08:00 | PROVIDERS: ATTEND Registered Nurse | DX: R30.0 Dysuria (principal) | CPT/HCPCS: 87086 ==